=== PATIENT | female | born 1980 | race Caucasian/White ===

== ENCOUNTER 2024-02-26 13:39 | Inpatient (IN) ==
--- OUTSIDE RECORDS SUMMARY | 2024-02-26 13:45 | External Medical Summary | Summary of Care ---
Author Name Unknown Organization [facility] Address [address] [facility] [place] [address] Phone [phone] Care Team Providers Care Measurement Specialist Name Role Phone Angelo Bunch PA-C Primary Care Provide r Reason for Visit * Reason Onset Date Comments Medication Refill 01/20/2024 Encounter Details Date Type Department Care Team (Late st Contact Info) Description 01/20/2024 Refill [facility] [address] [place] [phone] Vik Wesley DO [address] [place] [address] Narcolepsy without cataplexy Allergies Active Allergy Reactions Criticality Noted Date Comments Adhesive Tape 08/28/2009 Hydrocodone-Acetaminoph en Nausea/vomiting 03/23/2016 Nausea Meloxicam Nausea/vomiting Medium 12/08/2018 Fluoxetine Hcl Other (Please comment) 10/21/2009 Crying, anxious documented as of this encounter (statuses as of 01/25/2024) Medications Medication Sig Dispensed Refills Start Date End Date Status Vitron-C 65-125 MG Oral Tablet (Iron-Vitamin C 65-125 mg per tab) Take 1 Tablet by mouth in the morning and 1 Tablet before bedtime. 60 Tablet 11 07/26/2023 Active Additional Information Patient not taking.Reported on 11/29/2023 B-12 1000 MCG Oral Tablet Take 1,000 mcg by mouth in the morning. 30 Tablet 11 07/26/2023 Active Additional Information Patient not taking.Reported on 11/29/2023 Omeprazole 40 MG Oral Capsule Delayed Release (PriLOSEC) Take 1 Capsule by mouth in the morning. 09/15/2023 Active predniSONE 10 MG Oral Tablet (Deltasone)Indicati ons:Primary osteoarthritis of left knee,Strain of left hamstring muscle, initial encounter Take 5 tabs for 2 days, 4 tabs for 2 days, 3 tabs for 2 days, 2 tabs for 2 days 1 tab for 2 days 30 Tablet 11/29/2023 Active Amphetamine-Dextroa mphetamine 10 MG Oral Tablet (Adderall)Indicatio ns:Narcolepsy without cataplexy Take 1 Tablet by mouth 2 times a day in the morning and at noon. 60 Tablet 01/25/2024 Active Amphetamine-Dextroa mphet ER 20 MG Oral Capsule Extended Release 24 Hour (Adderall XR)Indications:Narc olepsy without cataplexy Take 1 Capsule by mouth 2 times a day in the morning and at noon. To be taken along with Adderall IR 10mg twice a day 60 Capsule 01/25/2024 Active Amphetamine-Dextroa mphetamine 10 MG Oral Tablet (Adderall)Indicatio ns:Narcolepsy without cataplexy Take 1 Tablet by mouth 2 times a day in the morning and at noon. 60 Tablet 12/21/2023 4 Discontinu ed(Refill) Amphetamine-Dextroa mphet ER 20 MG Oral Capsule Extended Release 24 Hour (Adderall XR)Indications:Narc olepsy without cataplexy Take 1 Capsule by mouth 2 times a day in the morning and at noon. To be taken along with Adderall IR 10mg twice a day 60 Capsule 12/21/2023 4 Discontinu ed(Refill) documented as of this encounter (statuses as of 01/25/2024) Active Problems Problem Noted Date Diagnosed Date Class 3 severe obesity due t o excess calories with serious comorbidity and body mass index (BMI) of 40.0 to 44.9 in adult 07/05/2023 Bilateral chronic serous otitis media 04/04/2021 History of 2019 novel coronavirus disease (COVID -19) 07/24/2020 Overview: 05/15/2020 History of nasal polyposis 07/12/2019 Deviated nasal septum 07/12/2019 Moderate episode of recurrent major depressive d isorder 06/29/2019 Obsessive-compulsive disorder 05/10/2019 Attention deficit disorder (ADD) without hyperac tivity 05/10/2019 Chronic maxillary sinusitis 05/10/2019 Obesity, Class II, BMI 35-39.9, isolated (see ac tual BMI) 11/11/2018 Narcolepsy without cataplexy 07/08/2018 Fibromyalgia 10/18/2013 Irritable bowel syndrome 01/07/2010 GENERALIZED ANXIETY DISORDER 10/21/2009 Acne vulgaris 10/21/2009 Gastroesophageal reflux disease with esophagitis 10/21/2009 documented as of this encounter (statuses as of 01/25/2024) Resolved Problems Problem Noted Date Diagnosed Date Resolved Date Contusion of occipital region of scalp 12/08/2018 12/28/2018 Whiplash injury to neck 12/08/201812/19 Body mass index 40.0-44.9, adult 09/26/2018 08/05/2023 Overview: Per Obesity protocol #1 Gynecomastia, female 12/08/2017 019 Biliary dyskinesia 04/20/2017 7 Obesity, Class I, BMI 30.0-3 4.9 (see actual BMI) 03/05/2017 09/28/2018 Overview: Per Obesity protocol #1 Biliary dyskinesia 11/11/2015 7 Perilunar dislocation, closed 07/12/2015 09/17/2017 Fibromyalgia 10/18/2013 04/05/2015 Patient is a currently breast-feeding mother 3 11/17/2013 Depression 03/29/2013 05/10/2015 GERD (gastroesophageal reflux disease) 12/30/2011 01/18/2012 Hemorrhage in early , antepartum 12/16/2011 01/18/2012 Other abnormal clinical finding 12/16/2011 01/18/2012 Overview: Possible vanishing twin and sub- chorion bleed on OB USG with other poor ob stetric history(V23.49) 12/14/2011 01/18/2012 Overview: One miscarriage at 8 wks Left ankle sprain 10/28/2011 01/18/2012 Left ankle sprain 10/19/2011 10/19/2011 Other specified forms of hearing loss 05/19/2011 10/19/2011 Dyspnea and respiratory abnormality 05/19/2011 10/19/2011 Overview: ICD-10 update of inactive term Other chronic sinusitis 05/19/201109/21 Tobacco use disorder 05/19/2011 012 Rh negative, antepartum 03/25/201109/21 Overview: Rhogam candidate Given 04/08/2011 Jason GARCIA ICD-10 update of inactive term Encounter for supervision of other normal 03/24/2011 10/19/2011 Overview: H/o PP depression-monitor for S&S ICD-10 update of inactive term Sprain, lumbosacral 01/20/2010 10/28/19 12 Abdominal pain, generalized 01/07/2010 10/19/2011 Irritable bowel syndrome 01/07/2010 PELVIC PAIN 01/07/2010 10/19/2011 Candidal vulvovaginitis 01/07/201009/21 NASAL / SINUS POLYPS 01/03/2010 012 SMOKER 10/21/2009 05/10/2015 Overview: Pt reports not smoking at NOB visit 03/24 Other allergic rhinitis 10/21/200903/21 Overview: ICD-10 update of inactive term Idiopathic scoliosis 10/21/2009 019 Gastritis and gastroduodenitis 08/22/2009 10/19/2011 documented as of this encounter (statuses as of 01/25/2024) Immunizations Name Administration Dates Next Due COVID-19 mRNA, LNP-s, No Pre serve, 2-Dose Series ([employer]) 07/08/2021,08/17/2020 PPD 09/04/2013,08/25/2013,08/14/2013 08/16/2013 Seasonal Influenza Virus Vac cine, Unspecified Formulation 03/26/2021,04/24/2020,05/10/2019,04/18,04/26/2017,04/25/2016,05/14/2015 ,06/29/2012,04/30/2003 Seasonal Influenza, PF, 6 M & above, IM , (FluLaval or Fluzone) 07/05/2023,03/26/2021,04/24/2020,05/10,04/18/2018,04/26/2017 Seasonal Influenza, Quadriva lent, No Preserve, IM 03/21/2022 Seasonal Influenza, Split, I IV3, With Preserve, Inj 04/25/2016,05/14/2015,03/13/2013 TDAP (age 10 and older)(Boostrix) 10/17/2020 TDAP, Age 7 and older, IM (Adacel) 08/13/2010 documented as of this encounter Social History Tobacco Use Types Packs/Day Years Used Date Smoking Tobacco: Former Cigarettes Smokeless Tobacco: Never Comments:quit 2013 - smoked on and off x 10 years/ no passive smoke Alcohol Use Standard Drinks/Week Comments No 0 (1 standard drink = 0.6 oz pur e alcohol) PHQ-2 Answer Date Recorded PHQ Adult Total Score 15 07/05/2023 Hunger Vital Sign Answer Date Recorded Within the past 12 months, y ou worried that your food would run out before you got the money to buy more. Never true 07/05/19 Within the past 12 months, t he food you bought just didn't last and you didn't have money to get more. Never true 07/05/2023 Childcare Answer Date Recorded Do you feel overwhelmed with taking care of a child, family member or friend? No 07/05/2023 Does your family need help f inding childcare? (Household - for ages 0-17 years) Not on file 07/05/2023 Clothing Answer Date Recorded Have you been unable to get clothing when it was really needed? No 07/05/2023 Is your family able to get c lothes or diapers when needed? (Household - for ages 0-17 years) Not on file 07/05/2023 Personal Safety Answer Date Recorded Do you feel unsafe or have concerns for your saf ety? No 07/05/2023 Do you have concerns for you r family's safety? (Household - for ages 0-17 years) Not on file 07/05/2023 Utilities Answer Date Recorded Do you have trouble paying y our heating, water, or electric bill? No 07/05/2023 Is your family able to pay t he heat, water, or electric bill? (Household - for ages 0-17 years) Not on file 07/05/2023 Does your family have access to good internet? (Household - for ages 0-17 years) Not on file 07/05/2023 Employment Status Answer Date Recorded Are you unemployed or without regular income? No 07/05/2023 Does the household have a re gular source of income? (Household - for ages 0-17 years) Not on file 07/05/2023 Social Connections Answer Date Recorded How often do you feel lonely or isolated from those around you? Sometimes 07/05/2023 Financial Resource Strain Answer Date R ecorded Do you have any trouble payi ng for your medications, or do you think you might in the future? Yes 07/05/2023 Does your family have troubl e paying for medicine? (Household - for ages 0-17 years) Not on file 07/05/2023 Transportation Needs Answer Date Record ed READ ONLY Do you have troubl e getting a ride to medical visits or work? Never True 07/05/2023 Does your family have a hard time getting a ride to doctors visits? (Household - for ages 0-17 years) Not on file 07/05/2023 Has lack of transportation k ept you from medical appointments, meetings, work, or from getting things needed for daily living? Check all that apply. (Adult - for ages 18 years and over) Not on file 07/05/2023 Do you (or your family) have trouble finding or paying for a ride (transportation)? (Household - for ages 0-17 years) Not on file 07/05/2023 Housing Stability Answer Date Recorded Do you currently live in a s helter or have no steady place to sleep at night? No 07/05/2023 READ ONLY Do you think you a re at risk of becoming homeless? No 07/05/2023 Does your family worry about paying for your home or becoming homeless? (Household - for ages 0-17 years) Not on file 0 07/05/2023 Are you homeless or worried that you might be in the future? (Adult - for ages 18 years and over) Not on file Are you (or your family) zeynep eless or worried that you might be in the future? (Household - for ages 0-17 years) Not on file Food Insecurity Answer Date Recorded Do you need food for this week? No 07/05/2023 Are you able to get enough f ood for your family? (Household - for ages 0-17 years) Not on file 07/05/2023 Does your family need food t his week? (Household - for ages 0-17 years) Not on file 07/05/2023 Do you always have enough fo od for your family? (Household - for ages 0-17 years) Not on file 07/05/2023 Sex and Gender Information Value Date Recorded Sex Assigned at Female 10/10/2021 6:45 PM EDT Gender Identity Female 10/10/2021 6:45 PM EDT Sexual Orientation Straight 10/10/2021 6: 45 PM EDT Job Start Date Occupation Industry Not on file Not on file Not on file documented as of this encounter Miscellaneous Notes * Telephone Encounter - Vik Wesley DO - 01/25/2024 9:16 AM EDTSigned Prescriptions: Disp Refills Amphetamine-Dextroamphetamine 10 MG Oral T*60 Tab*0 Sig: Take 1 Tablet by mouth 2 times a day in the morning and at noon. Authorizing Provider: VIK WESLEY Amphetamine-Dextroamphet ER 20 MG Oral Cap*60 Cap*0 Sig: Take 1 Capsule by mouth 2 times a day in the morning and at noon. To be taken along with Adderall IR 10mg twice a day Authorizing Provider: VIK WESLEY * Telephone Encounter - Fior Jackman LPN - 01/20/2024 9:25 AM EDTPending Prescriptions: Disp Refills Amphetamine-Dextroamphetamine 10 MG Oral T*60 Tab*0 Sig: Take 1Tablet by mouth 2 times a day in the morning and at noon. Amphetamine-Dextroamphet ER 20 MG Oral Cap*60 Cap*0 Sig: Take 1 Capsule by mouth 2 times a day in the morning and at noon. To be taken along with Adderall IR 10mg twice a day documented in this encounter Plan of Treatment Upcoming Encounters Date Type Department Care Team (Late st Contact Info) Description 03/10/2024 2:20 PM EDT Telemedicine Nutrition & Weight Management, [place] [address] [place] [address] Maile Aragon CRNP [address] [place] [address] 04/17/2024 1:40 PM EDT Office Visit Family [facility] [place] [facility] [address] [place] [address] Angelo Bunch PA-C [address] [place] [address] 05/30/2024 2:00 PM EST Office Visit Gynecology/Obstetrics [facility] [address] [place] [address] Linnette Ovalle CRNP [address] [place] [address] Health Maintenance Due Date Last Done Comments Pneumococcal Vaccine: Pediatrics (0 to 5 Years) and At-Risk Patients (6 to 64 Years) (1 of 2 - PCV) 09/22/1985 Hepatitis B Vaccine (1 of 3 - 19+ 3-dose series) 09/22/1998 HPV/Co-Test 09/22/2009 Mammogram 06/11/2022 06/11/2021, 05/21, 10/31/2019, Additional history exists COVID-19 Vaccine (3 - season) 2023 07/08/2021, 08/17/2020 Influenza Vaccine (FLU shot) (#1) 2024 07/05/2023, 03/21/2022, 03/26/2021, Additional history exists Depression Monitoring 07/05/2024 07/05/2023 Cervical Cancer Screening 02/05/2025 Pap Smear 02/05/2025 02/05/2022, 08/19, 05/04/2017, Additional history exists Diabetes Screening 07/14/2026 07/14/2023, 0 07/14/2023, 03/31/2021, Additional history exists Lipid Panel 07/14/2028 07/14/2023, 03/21, 06/08/2020, Additional history exists DTaP,Tdap,and Td Vaccines (3 - Td or Tdap) 10/17/2030 10/17/2020, 08/13/2010 HPV (Gardasil) Vaccine Aged Out No lo nger eligible based on patient's age to complete this topic MENINGOCOCCAL (MENACTRA/MENVEO) Aged Out No longer eligible based on patient's age to complete this topic documented as of this encounter Medical Devices Not on filedocumented as of this encounter Visit Diagnoses Diagnosis Narcolepsy without cataplexy documented in this encounter Care Teams Measurement Specialist Relationship Specialty Start Date End Date Angelo Bunch PA-C [address] [facility] [place] [address] PCP - General Physician [employer] Lifeguard Specialist 11/29/23 documented as of this encounter
--- OUTSIDE RECORDS SUMMARY | 2024-02-26 13:46 | External Medical Summary | Summary of Care ---
Author Name Unknown Organization [facility] Address [address] [place] [address] Phone [phone] Care Team Providers Care Quality Control Projectionist Name Role Phone Unavailable Primary Care Provider Unavailabl e Reason for Visit * Reason Onset Date Comments Medication Refill 10/11/2023 Encounter Details Date Type Department Care Team (Late st Contact Info) Description 10/11/2023 Refill [facility] [address] [place] [phone] Vik Wesley DO [address] [place] [address] Narcolepsy without cataplexy Allergies Active Allergy Reactions Criticality Noted Date Comments Adhesive Tape 08/28/2009 Hydrocodone-Acetaminoph en Nausea/vomiting 03/23/2016 Nausea Meloxicam Nausea/vomiting Medium 12/08/2018 Fluoxetine Hcl Other (Please comment) 10/21/2009 Crying, anxious documented as of this encounter (statuses as of 10/12/2023) Medications Medication Sig Dispensed Refills Start Date End Date Status Vitron-C 65-125 MG Oral Tablet (Iron-Vitamin C 65-125 mg per tab) Take 1 Tablet by mouth in the morning and 1 Tablet before bedtime. 60 Tablet 11 07/26/2023 Active Additional Information Patient taking differently:1 Tablet OralHS, Reported on 08/20/2023 B-12 1000 MCG Oral Tablet Take 1,000 mcg by mouth in the morning. 30 Tablet 11 07/26/2023 Active Wakix 17.8 MG Oral Tablet (Pitolisant HCl) TAKE 2 TABLETS BY MOUTH 1 TIME A DAY UPON AWAKENING. 60 Tablet 5 08/18/2023 Active Additional Information Patient not taking.Reported on 08/20/2023 Wegovy 0.25 MG/0.5ML Subcutaneous Solution Auto-injector (Semaglutide-Weigh t Management)Indicat ions:Morbid obesity due to excess calories (HCC) Inject 0.25 mg (1 pen) under the skin once a week for 12 doses. 2 mL 2 10/05/2023 4 Active Amphetamine-Dextro amphetamine 10 MG Oral Tablet (Adderall)Indicati ons:Narcolepsy without cataplexy Take 1 Tablet by mouth 2 times a day in the morning and at noon. 60 Tablet 0 10/12/2023 Active Amphetamine-Dextro amphet ER 20 MG Oral Capsule Extended Release 24 Hour (Adderall XR)Indications:Mal colepsy without cataplexy Take 1 Capsule by mouth 2 times a day in the morning and at noon. To be taken along with Adderall IR 10mg twice a day 60 Capsule 0 10/12/2023 Active Amphetamine-Dextro amphetamine 10 MG Oral Tablet (Adderall)Indicati ons:Narcolepsy without cataplexy Take 1 Tablet by mouth 2 times a day in the morning and at noon. 60 Tablet 0 08/31/2023 4 Discontinue d(Refill) Amphetamine-Dextro amphet ER 20 MG Oral Capsule Extended Release 24 Hour (Adderall XR)Indications:Mal colepsy without cataplexy Take 1 Capsule by mouth 2 times a day in the morning and at noon. To be taken along with Adderall IR 10mg twice a day 60 Capsule 0 08/31/2023 4 Discontinue d(Refill) documented as of this encounter (statuses as of 10/12/2023) Active Problems Problem Noted Date Diagnosed Date [...] as of this encounter (statuses as of 10/12/2023) Resolved Problems Problem Noted Date Diagnosed Date [...] as of this encounter (statuses as of 10/12/2023) Immunizations Name Administration Dates Next Due COVID-19 mRNA, LNP-s, No Pre serve, 2-Dose Series ([employer]) 07/08/2021,08/17/2020 PPD 09/04/2013,08/25/2013,08/14/2013 08/16/2013 Seasonal Influenza Virus Vac cine, Unspecified Formulation 03/26/2021,04/24/2020,05/10/2019,04/18,04/26/2017,04/25/2016,05/14/2015 ,06/29/2012,04/30/2003 Seasonal Influenza, PF, 6 M & above, IM , (FluLaval or Fluzone) 07/05/2023,03/26/2021,04/24/2020,05/10,04/18/2018,04/26/2017 Seasonal Influenza, Quadriva lent, No Preserve, IM 03/21/2022 Seasonal Influenza, Split, I IV3, With Preserve, Inj 04/25/2016,05/14/2015,03/13/2013 TDAP (age 10 and older)(Boostrix) 10/17/2020 TDAP (age 11 and older)(Adacel) 08/13/2010 documented as of this encounter Social [...] money to buy more. Never true 07/05/19 24 Within the past 12 months, t he food you bought just didn't last and you didn't have money to get more. Never true 07/05/2023 Sex and Gender Information Value Date Recorded Sex Assigned at Female 10/10/2021 6:45 PM EDT Gender Identity Female 10/10/2021 6:45 PM EDT Sexual Orientation Straight 10/10/2021 6: 45 PM EDT Job Start Date Occupation Industry Not on file Not on file Not on file documented as of this encounter Miscellaneous Notes * Telephone Encounter - Vik Wesley DO - 10/12/2023 10:53 AM EDTSigned Prescriptions: Disp Refills Amphetamine-Dextroamphetamine 10 [...] Telephone Encounter - Fior Jackman LPN - 10/12/2023 8:26 AM EDTPending Prescriptions: Disp Refills Amphetamine-Dextroamphetamine 10 [...] Care Team (Late st Contact Info) Description 10/22/2023 12:20 PM EDT Office Visit Family Practice [facility] [place] [address] [place] [address] Annette Bunch PA-C [address] [place] [address] 01/06/2024 3:00 PM EDT Office Visit [facility] [place] [address] [phone] Aida Marie DO [address] [place] [phone] 03/10/2024 2:20 PM EDT Telemedicine Nutrition & Weight Management, [place] [address] [place] [address] Maile Aragon CRNP [address], [place] [id number] 05/30/2024 2:00 PM EST Office Visit Gynecology/Obstetrics [facility] [address] [place] [address] Linnette Ovalle CRNP [address] [place] [address] Health Maintenance Due Date Last Done Comments Pneumococcal Vaccine: Pediatrics (0 to 5 Years) and At-Risk Patients (6 to 64 Years) (1 of 2 - PCV) 09/22/1985 Hepatitis B (1 of 3 - 19+ 3-dose series) 09/22/1998 HPV/Co-Test 09/22/2009 Mammogram 06/11/2022 06/11/2021, 05/21, 10/31/2019, Additional history exists COVID-19 Vaccine ( - 2022- season) 2023 07/08/2021, 08/17/2020 Depression, Most Recent Score >= 10 (will fire each visit until score < 10) 07/06/2023 07/05/2023 Cervical Cancer Screening 02/05/2025 Pap Smear 02/05/2025 02/05/2022, 08/19, 05/04/2017, Additional history exists Diabetes Screening 07/14/2026 07/14/2023, 0 07/14/2023, 03/31/2021, Additional history exists Lipid Panel 07/14/2028 07/14/2023, 03/21, 06/08/2020, Additional history exists DTaP,Tdap,and Td Vaccines (3 - Td or Tdap) 10/17/2030 10/17/2020, 08/13/2010 Influenza Vaccine (FLU shot) Completed , 03/21/2022, 03/26/2021, Additional history exists GARDASIL-HPV IMMUNIZATION SERIES Aged Out No longer eligible based on patient's age to complete this topic MENINGOCOCCAL (MENACTRA/MENVEO) Aged Out No longer eligible based on patient's age to complete this topic documented as of this encounter Medical Devices Not on filedocumented as of this encounter Visit Diagnoses Diagnosis Narcolepsy without cataplexy documented in this encounter
--- OUTSIDE RECORDS SUMMARY | 2024-02-26 13:46 | External Medical Summary | Summary of Care ---
Author Name Unknown Organization [facility] Address [address] [place] [address] Phone [phone] Care Team Providers Care Receiving Dock Checker Name Role Phone Unavailable Primary Care Provider Unavailabl e Reason for Visit * Reason Comments Weight Management * Evaluate & Treat - Unlimited Visits (Within 30 days (routine)) - Authorized Specialty Diagnoses / Procedures Referred By Contact Referred To Contact GI NUTRITION/IM / Gastroenterology Diagnoses Weight gain Annette Bunch PA-C [address] [place] [address] Referral ID Status Reason Start Date Expiration Date Visits Requested Visits Authorized [id number] Authorized Specialty Services Required 07/05/2023 07/05/[phone] Encounter Details Date Type Department Care Team (Late st Contact Info) Description 10/05/2023 3:40 PM EDT [facility] [address] [place] [address] Johnny Shaw MD [address] [place] [address] Abnormal weight gain*; Morbid obesity due to excess calories (HCC); Dyslipidemia, goal LDL below 100; Narcolepsy without cataplexy Allergies Active Allergy Reactions Criticality Noted Date Comments Adhesive Tape 08/28/2009 Hydrocodone-Acetaminoph en Nausea/vomiting 03/23/2016 Nausea Meloxicam Nausea/vomiting Medium 12/08/2018 Fluoxetine Hcl Other (Please comment) 10/21/2009 Crying, anxious documented as of this encounter (statuses as of 10/05/2023) Medications Medication Sig Dispensed Refills Start Date [...] Additional Information Patient not taking.Reported on 08/20/2023 Amphetamine-Dextroa mphetamine 10 MG Oral Tablet (Adderall)Indicatio ns:Narcolepsy without cataplexy Take 1 Tablet by mouth 2 times a day in the morning and at noon. 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 To be taken along with Adderall IR 10mg twice a day 60 Capsule 0 08/31/2023 Active Wegovy 0.25 MG/0.5ML Subcutaneous Solution Auto-injector (Semaglutide-Weight Management)Indicati ons:Morbid obesity due to excess calories (HCC) Inject 0.25 mg under the skin once a week for 12 doses. 2 mL 2 10/05/2023 12/22/2023 Active documented as of this encounter (statuses as of 10/05/2023) Active Problems Problem Noted Date Diagnosed Date [...] as of this encounter (statuses as of 10/05/2023) Resolved Problems Problem Noted Date Diagnosed Date [...] as of this encounter (statuses as of 10/05/2023) Immunizations Name Administration Dates Next Due COVID-19 mRNA, LNP-s, No Pre serve, 2-Dose Series ([email or web address]) 07/08/2021,08/17/2020 PPD 09/04/2013,08/25/2013,08/14/2013 08/16/2013 Seasonal Influenza Virus [...] Smoking Tobacco: Former Cigarettes Smokeless Tobacco: Never Tobacco Cessation:Counseling Given: Not Answered Comments:quit 2013 - smoked on and off [...] on file documented as of this encounter Last Filed Vital Signs Vital Sign Reading Time Taken Comments Blood Pressure - - Pulse - - Temperature - - Respiratory Rate - - Oxygen Saturation - - Inhaled Oxygen Concentration - - Weight 104.3 kg (230 lb) 10/05/2023 3:40 PM EDT Height - - Body Mass Index 40.74 08/18/2023 10:30 AM EST documented in this encounter Progress Notes * Johnny Shaw MD - 10/05/2023 3:36 PM EDT [facility] WE[facility] MANAGEMENT CLIN[facility] CONSULTATION Referring Physician: Annette Bunch PA-C Patient location: HOME. I was in a hospital or clinic location. After connecting through [employer],patient was verified with two unique identifiers. Patient (or authorized legal underwriting sales representative) was then informed that this was a Telemedicine visit and being conducted confidentially over secure lines. Methods to assure confidentiality were taken. Patient acknowledged consent and understanding of pr ivacy and security of the Telemedicine visit. The patient agreed to participate. Source of information: Patient Available records reviewed: Recent provider visits, Imaging, and Labs Reason for Referral: Weight Management. 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 Obesity, Class II, BMI 35-39.9, isolated (see actual BMI) E66.9 Irritable bowel syndrome K58.9 Fibromyalgia M79.7 Obsessive-compulsive disorder F42.9 Attention deficit disorder (ADD) without hyperactivity F98.8 Chronic maxillary sinusitis J32.0 Moderate episode of recurrent major depressive disorder (HCC) F33.1 History of nasal polyposis Z87.09 Deviated nasal septum J34.2 History of 2019 novel coronavirus disease (COVID-19) Z86.16 Bilateral chronic serous otitis media H65.23 Class 3 severe obesity due to excess calories with serious comorbidity and body mass index (BMI) of40.0 to 44.9 in adult (HCC) E66.01, Z68.41 who presents to the [facility] for further recommendations. HPI: Ms. Orellana has a BMI of 40 and suffers from Morbid obesity. At today's initial consultation, the patient would like to receive counseling regarding healthy diet and lifestyle changes she can make to help with abnormal weight gain. She would also like to discuss medical management for the treatment of obesity. Abnormal weight gain started a few years prior. Patient attributes her weight gain to a recent diagnosis of narcolepsy. She was sleeping quite often over the last few months due to not taking her medication and that resulted in gaining weight. In the past, the patient has tried only a few methods to help lose weight. She tried portion control and increasing her exercise. None of these methods caused any significant weight loss. She has never tried commercial programs or medications for weight loss. Previous Weight Management Interventions: The patient has tried weight loss in the past without significant skilled nursing success. Previous interventions: Self-directed. She denies any past pharmacotherapy for weight loss. Weight history: Highest Body Weight: 230 pounds in 2023. Wt Readings from Last 8 Encounters: 10/05/23 104.3 kg (230 lb) 08/20/23 102.4 kg (225 lb 11.2 oz) 08/18/23 102.5 kg (226 lb) 07/05/23 104.3 kg (230 lb) 07/02/23 104.3 kg (230 lb) 05/13/22 92.4 kg (203 lb 12.8 oz) 02/05/22 89.8 kg (198 lb) 09/16/21 93.1 kg (205 lb 3.2 oz) Current Diet: Describes typical diet history/24 hr recall Breakfast: Skips Lunch: 2 eggs, piece of toast Dinner: Vegetable shrimp stir harris Snacks: Skips Drinks: Decaf tea Restaurant meals: once a week, twice a week Activity: Does not exercise Past Medical History: Diagnosis Date ACNE 10/21/2009 ALLERGIC RHINITIS 10/21/2009 Attention deficit disorder (ADD) without hyperactivity 05/10/2019 Chronic maxillary sinusitis 05/10/2019 Esophageal reflux 10/21/2009 Fibromyalgia 10/18/2013 Generalized anxiety disorder 10/21/2009 GERD (gastroesophageal reflux disease) Gynecomastia, female 12/08/2017 Idiopathic scoliosis 10/21/2009 Irritable bowel syndrome 01/07/2010 Left ankle sprain 10/28/2011 Moderate episode of recurrent major depressive disorder (HCC) 06/29/2019 Obesity, Class I, BMI 30.0-34.9 (see actual BMI) 03/05/2017 Obsessive-compulsive disorder 05/10/2019 Primary narcolepsy without cataplexy 07/08/2018 SMOKER 10/21/2009 Pt reports not smoking at NOB visit 10/4 SPRAIN LUMBOSACRAL 01/20/2010 Past Surgical History: Procedure Laterality Date CRANIOFACIAL APPROACH, EXTRADURAL 09/20/95 INFORMATION Bilateral 2013 essure coils placed LAPAROSCOPY; CHOLECYSTECTOMY N/A 04/20/2017 LAPAROSCOPIC CHOLECYSTECTOMY performed by Vladimir Chisholm MD at [facility] REMOVAL OF ETHMOID SINUS,EXTRANASAL 09/20/95 Review of patient's allergies indicates: Allergen Reactions Meloxicam Nausea/vomiting Adhesive Tape Hydrocodone-Acetaminophen Nausea/vomiting Nausea Prozac [Fluoxetine Hcl] Other (Please comment) Crying, anxious Current Outpatient Medications Medication Sig Dispense Refill Vitron-C 65-125 MG Oral Tablet (Iron-Vitamin C 65-125 mg per tab) Take 1 Tablet by mouth in the morning and 1 Tablet before bedtime. (Patient taking differently: Take 1 Tablet by mouth at bedtime.) 60 Tablet 11 B-12 1000 MCG Oral Tablet Take 1,000 mcg by mouth in the morning. 30 Tablet 11 Wakix 17.8 MG Oral Tablet (Pitolisant HCl) TAKE 2 TABLETS BY MOUTH 1 TIME A DAY UPON AWAKENING. (Patient not taking: Reported on 08/20/2023) 60 Tablet 5 Amphetamine-Dextroamphetamine 10 MG Oral Tablet (Adderall) Take 1 Tablet by mouth 2 times a day in the morning and at noon. 60 Tablet 0 Amphetamine-Dextroamphet ER 20 MG Oral Capsule Extended Release 24 Hour (Adderall XR) Take 1 Capsule by mouth 2 times a day in the morning and at noon. To be taken along with Adderall IR 10mg twice aday 60 Capsule 0 No current facility-administered medications for this visit. Family History: Family History Problem Relation Age of Onset Depression Mother Benign Breast Condition Mother Hypertension Father Other (non hodgkins lymphoma) Father Hyperlipidemia Father Thyroid Disorder Father No Past Hx Brother COPD Grandmother (Maternal) COPD Grandmother (Paternal) Heart failure Grandmother (Paternal) Social History: Alcohol: Infrequent Tobacco Use: No Drug Use: No Review of Systems: Constitutional: (+) weight change Cardiovascular: (-) negative: no chest pain, dyspnea, syncope, or palpitations Pulmonary: (-) negative: no cough, wheezing, or shortness of breath Abdominal/GI: (-) negative: no pain, heartburn, dysphagia, bleeding, change in bowel habits, nauseaor vomiting Eyes: Glaucoma No Cardiovascular: No chest pain, No shortness of breath, No dyspnea on exertion, No orthopnea, No edema, No palpitations, and No syncope Hypertension: No BP Readings from Last 3 Encounters: 08/20/23 134/88 08/18/23 122/68 07/05/23 134/84 CAD: No Pulmonary Asthma: No COPD: No There are no exam notes on file for this visit. Sleep Apnea: No Endocrine: No Patient denies personal or family history of medullary thyroid carcinoma. Patient denies personal or family history of multiple endocrine neoplasia syndrome. Insulin Resistance: No Diabetes: No Hemoglobin AIC Results: No components found for: "[id number]" Dyslipidemia: Yes, not on treatment Lipid Panel Results: Results for orders placed or performed in visit on 07/14/23 LIPID PANEL WITH DIRECT LDL IF TG IS HIGH Result Value Ref Range Triglycerides 247 (H) <=174 mg/dL Cholesterol 232 (H) <200 mg/dL HDL Cholesterol 50 >49 mg/dL Non-HDL Cholesterol 182 (H) <=159 mg/dL LDL Cholesterol 133 (H) <=129 mg/dL GI: No abdominal pain, No change in bowel habits, No significant heartburn, No significant change in appetite, No nausea, vomiting, diarrhea, or constipation, No hematemesis, No blood in stools or black tarry stools, No abdominal bloating or early satiety, and No dysphagia GERD: No Fatty Liver: No Renal History of nephrolithiasis: No. Musculoskeletal Osteoarthritis: No Functional Status: NO Impairment Reproductive Polycystic ovarian syndrome: No Menstrual Cycle: Yes Control: No Neuro Stroke: No Seizures: No Pseudotumor: No Headache: Yes PSYCHOSOCIAL: No Physical Examination: TeleMed visit Wt 104.3 kg (230 lb) | BMI 40.74 kg/m | BSA 2.15 m Constitutional: no acute distress, +overweight Assessment and Recommendation: Ms. Orellana is a 43 year old patient with a past medical history listed above, who [facility]sto the [facility] for further recommendations regarding abnormal weightgain, her Body mass index is 40.74 kg/m. classifying her as having Morbid obesity . #Abnormal Weight Gain #Morbid Obesity BMI 41, not on any weight loss medications currently. - Start wegovy .25mg weekly with plans to increase dose monthly as tolerated - Counseled extensively on healthy diet and lifestyle interventions - Patient encouraged to track daily caloric intake using apps such as [employer] (TEN), or LOSE IT! - Increase protein intake to 1 gram/kg for a minimum of 100g daily - Decrease carbohydrate intake and increase proportions of protein:carbs in every meal - Increase fluid intake to 64 fluid oz daily, minimum - Handouts regarding nutrition and physical activity were provided, as appropriate. - Encouraged daily exercise including a minimum of 30 mins/ 3 days a week - RTC in 3 months in person or via telehealth #Dyslipidemia Lipid panel was checked 06/2023 and showed elevated triglycerides (247), elevated total cholesterol(232), elevated LDL (133) - Counseled extensively on healthy diet and lifestyle interventions - Expect improvement with weight loss #Narcolepsy without cataplexy - Adderall #Iron deficiency Anemia Ferritin level of 15 - Vitron C Time spent with patient 60 minutes. More than 50% of my time spent with patient providing counseling about the benefits of weight loss, about the patient's nutritional status, detailed explanations about calorie count, types of nutrients to choose, and composition of the meals. Reviewed and discussed weight, weight trends and pertinent labs and test results. Motivational interview provided in order to prepare the patient to achieve future goals. The patient agreed to try all the plan discussed and return in three months. Patient was instructed to message or call in the meantime with any further concerns or questions. Johnny Shaw MD documented in this encounter Plan of Treatment Upcoming Encounters Date Type Department Care Team (Late st Contact Info) Description 10/22/2023 12:20 PM EDT Office Visit [facility] [address] [facility] [address] Annette Bunch PA-C [address] [facility] [place] [address] 01/06/2024 3:00 PM EDT Office Visit Sleep Disorders Ctr [facility] [address] [phone] Aida Marie DO [address] [address] 05/30/2024 2:00 PM EST Office Visit Gynecology/Obstetrics [facility] [address] [place] [address] [place], OSIEL Goff [address] [place] [address] Health Maintenance Due Date Last Done Comments Pneumococcal Vaccine: Pediatrics (0 to 5 Years) and At-Risk Patients (6 to 64 Years) (1 of 2 - PCV) 09/22/1985 Hepatitis B (1 of 3 - 19+ 3-dose series) 09/22/1998 HPV/Co-Test 09/22/2009 Mammogram 06/11/2022 06/11/2021, 05/21, 10/31/2019, Additional history exists COVID-19 Vaccine ( - season) 2023 07/08/2021, 08/17/2020 Depression, Most Recent [...] as of this encounter Visit Diagnoses Diagnosis Abnormal weight gain- Primary Morbid obesity due to excess calories (HCC) Dyslipidemia, goal LDL below 100 Other and unspecified hyperlipidemia Narcolepsy without cataplexy documented in this encounter
--- OUTSIDE RECORDS SUMMARY | 2024-02-26 13:46 | External Medical Summary | Summary of Care ---
Author Name Unknown Organization [facility] Address [address] [facility] [address] Phone [phone] Care Team Providers Care Boilermaker'S Assistant Name Role Phone Unavailable Primary Care Provider Unavailabl e Reason for Visit * Reason Onset Date Comments Precert Denied 08/27/2023 Wakix 17.8 mg ta blets Encounter Details Date Type Department Care Team (Late st Contact Info) Description 08/27/2023 Telephone Sleep Disorders Ctr [facility] [address] [place] [phone] Aida Marie, [address] [place] [address] Precert Denied ( Wakix 17.8 mg tablets ) Allergies Active Allergy Reactions Criticality Noted Date Comments Adhesive Tape 08/28/2009 Hydrocodone-Acetaminoph en Nausea/vomiting 03/23/2016 Nausea Meloxicam Nausea/vomiting Medium 12/08/2018 Fluoxetine Hcl Other (Please comment) 10/21/2009 Crying, anxious documented as of this encounter (statuses as of 09/01/2023) Medications Medication Sig Dispensed Refills Start Date [...] Additional Information Patient not taking.Reported on 08/20/2023 Amphetamine-Dextr oamphetamine 10 MG Oral Tablet (Adderall)Indicat ions:Narcolepsy without cataplexy Take 1 Tablet by mouth 2 times a day in the morning and at noon. 60 Tablet 0 07/27/2023 4 Discontinued (Refill) Amphetamine-Dextr oamphet ER 20 MG Oral Capsule Extended Release 24 Hour (Adderall XR)Indications:Na rcolepsy without cataplexy Take 1 Capsule by mouth 2 times a day in the morning and at noon. To be taken along with Adderall IR 10mg twice a day 60 Capsule 0 07/30/2023 4 Discontinued (Refill) Amoxicillin 500 MG Oral Capsule (Amoxil)Indicatio ns:Acute non-recurrent frontal sinusitis Take 1 Capsule by mouth in the morning and 1 Capsule at noon and 1 Capsule before bedtime. Do all this for 10 days. 30 Capsule 0 08/20/2023 4 valACYclovir HCl 1 GM Oral Tablet (Valtrex)Indicati ons:Herpes zoster without complication Take 1 Tablet by mouth in the morning and 1 Tablet at noon and 1 Tablet before bedtime. Do all this for 7 days. For 7 days for shingles. 21 Tablet 0 08/20/2023 4 documented as of this encounter (statuses as of 09/01/2023) Active Problems Problem Noted Date Diagnosed Date [...] as of this encounter (statuses as of 09/01/2023) Resolved Problems Problem Noted Date Diagnosed Date [...] as of this encounter (statuses as of 09/01/2023) Immunizations Name Administration Dates Next Due COVID-19 mRNA, LNP-s, No Pre serve, 2-Dose Series ([employer]) 07/08/2021,08/17/2020 PPD 09/04/2013,08/25/2013,08/14/2013 08/16/2013 Seasonal Influenza Virus [...] encounter Miscellaneous Notes * Telephone Encounter - Violetta Quevedo LPN - 08/27/2023 11:43 AM EST Needs prior authorization for Wakix 17.8 mg tablets. Through sleep department. documented in this encounter Plan of Treatment Upcoming Encounters Date Type Department Care Team (Late st Contact Info) Description 09/16/2023 10:00 AM EDT Office Visit Nutrition & Weight Management, [facility] [address] [place] [address] Lizzette Reynolds PA-C [address] [place] [address] 10/22/2023 12:20 PM EDT Office Visit [facility] [address] [facility] [place] [address] Annette Bunch PA-C [address] [facility] [place] [address] 01/06/2024 3:00 PM EDT Office Visit Sleep Disorders Ctr [facility] [address] [place] [phone] Aida Marie DO [address] [place] [address] 05/30/2024 2:00 PM EST Office Visit Gynecology/Obstetrics [facility] [address] [place] [address] Linnette Ovalle CRNP [address] [place] [address] Health Maintenance Due Date Last Done Comments Pneumococcal Vaccine: Pediatrics (0 to 5 Years) and At-Risk Patients (6 to 64 Years) (1 of 2 - PCV) 09/22/1985 Hepatitis B (1 of 3 - 19+ 3-dose series) 09/22/1998 HPV/Co-Test 09/22/2009 Mammogram 06/11/2022 06/11/2021, 05/21, 10/31/2019, Additional history exists COVID-19 Vaccine (3 - 2022-24 season) 2023 07/08/2021, 08/17/2020 Depression, Most Recent [...]
--- OUTSIDE RECORDS SUMMARY | 2024-02-26 13:46 | External Medical Summary | Summary of Care ---
Author Name Unknown Organization [facility] Address [address] [facility] [place] [address] Phone [phone] Care Team Providers Care Solutions Developer Name Role Phone Unavailable Primary Care Provider Unavailabl e Reason for Visit * Reason Onset Date Comments Medication Refill 11/18/2023 Encounter Details Date Type Department Care Team (Late st Contact Info) Description 11/18/2023 Refill [facility] Disorders [facility] [address] [place] [phone] Vik Wesley DO [address] [place] [address] Narcolepsy without cataplexy Allergies Active Allergy Reactions Criticality Noted Date Comments Adhesive Tape 08/28/2009 Hydrocodone-Acetaminoph en Nausea/vomiting 03/23/2016 Nausea Meloxicam Nausea/vomiting Medium 12/08/2018 Fluoxetine Hcl Other (Please comment) 10/21/2009 Crying, anxious documented as of this encounter (statuses as of 11/19/2023) Medications Medication Sig Dispensed Refills Start Date [...] the morning and at noon. 60 Tablet 11/19/2023 Active Amphetamine-Dextro amphet ER 20 MG Oral Capsule Extended Release 24 Hour (Adderall XR)Indications:Mal colepsy without cataplexy Take 1 Capsule by mouth 2 times a day in the morning and at noon. To be taken along with Adderall IR 10mg twice a day 60 Capsule 11/19/2023 Active Amphetamine-Dextro amphetamine 10 MG Oral Tablet (Adderall)Indicati ons:Narcolepsy without cataplexy Take 1 Tablet by mouth 2 times a day in the morning and at noon. 60 Tablet 10/12/2023 4 Discontinue d(Refill) Amphetamine-Dextro amphet ER 20 MG Oral Capsule Extended Release 24 Hour (Adderall XR)Indications:Mal colepsy without cataplexy Take 1 Capsule by mouth 2 times a day in the morning and at noon. To be taken along with Adderall IR 10mg twice a day 60 Capsule 10/12/2023 4 Discontinue d(Refill) documented as of this encounter (statuses as of 11/19/2023) Active Problems Problem Noted Date Diagnosed Date [...] as of this encounter (statuses as of 11/19/2023) Resolved Problems Problem Noted Date Diagnosed Date [...] as of this encounter (statuses as of 11/19/2023) Immunizations Name Administration Dates Next Due COVID-19 mRNA, LNP-s, No Pre serve, 2-Dose Series ([employer]) 07/08/2021,08/17/2020 PPD 09/04/2013,08/25/2013,08/14/2013 08/16/2013 Seasonal Influenza Virus [...] Telephone Encounter - Vik Wesley DO - 11/19/2023 9:47 AM EDTSigned Prescriptions: Disp Refills Amphetamine-Dextroamphetamine 10 [...] Telephone Encounter - Fior Jackman LPN - 11/19/2023 8:28 AM EDTPending Prescriptions: Disp Refills Amphetamine-Dextroamphetamine 10 [...] Care Team (Late st Contact Info) Description 01/06/2024 3:00 PM EDT Office Visit Sleep Disorders Ctr [facility] [address] [phone] Aida Marie DO [address] [address] 03/10/2024 2:20 PM EDT Telemedicine Nutrition & Weight Management[address] [place] [address] Maile Aragon CRNP [address] [place] [address] 05/30/2024 2:00 PM EST Office Visit Gynecology/Obstetrics [facility] [address] [place] [place] [address] Linnette Ovalle CRNP [address] [place] [address] Health Maintenance Due Date Last Done Comments Pneumococcal Vaccine: Pediatrics (0 to 5 Years) and At-Risk Patients (6 to 64 Years) (1 of 2 - PCV) 09/22/1985 Hepatitis B (1 of 3 - 19+ 3-dose series) 09/22/1998 HPV/Co-Test 09/22/2009 Mammogram 06/11/2022 06/11/2021, 05/21, 10/31/2019, Additional history exists COVID-19 Vaccine ( season) 2023 07/08/2021, 08/17/2020 Depression, Most Recent [...]
--- OUTSIDE RECORDS SUMMARY | 2024-02-26 13:46 | External Medical Summary | Summary of Care ---
Author Name Unknown Organization [facility] Address [address] [place] [address] Phone [phone] Care Team Providers Care Management Lecturer Name Role Phone Angelo Bunch PA-C Primary Care Provide r Reason for Visit * Reason Onset Date Comments Precert Denied 10/06/2023 Wegovy Encounter Details Date Type Department Care Team (Late st Contact Info) Description 10/06/2023 Telephone Nutrition & Weight Management, [place] [address] [place], [place] [id number] Johnny Shaw MD [address] [place] [address] [place] [address] Precert Denied (Wegovy) Allergies Active Allergy Reactions Criticality Noted Date Comments Adhesive Tape 08/28/2009 Hydrocodone-Acetaminoph en Nausea/vomiting 03/23/2016 Nausea Meloxicam Nausea/vomiting Medium 12/08/2018 Fluoxetine Hcl Other (Please comment) 10/21/2009 Crying, anxious documented as of this encounter (statuses as of 01/05/2024) Medications Medication Sig Dispensed Refills Start Date [...] Additional Information Patient not taking.Reported on 11/29/2023 Wakix 17.8 MG Oral Tablet (Pitolisant HCl) TAKE 2 TABLETS BY MOUTH 1 TIME A DAY UPON AWAKENING. 60 Tablet 5 08/18/2023 4 Discontinue d(End of Procedure) Amphetamine-Dextro amphetamine 10 MG Oral Tablet (Adderall)Indicati ons:Narcolepsy without cataplexy Take 1 Tablet by mouth 2 times a day in the morning and at noon. 60 Tablet 08/31/2023 4 Discontinue d(Refill) Amphetamine-Dextro amphet ER 20 MG Oral Capsule Extended Release 24 Hour (Adderall XR)Indications:Mal colepsy without cataplexy Take 1 Capsule by mouth 2 times a day in the morning and at noon. To be taken along with Adderall IR 10mg twice a day 60 Capsule 08/31/2023 4 Discontinue d(Refill) Wegovy 0.25 MG/0.5ML Subcutaneous Solution Auto-injector (Semaglutide-Weigh t Management)Indicat ions:Morbid obesity due to excess calories (HCC) Inject 0.25 mg (1 pen) under the skin once a week for 12 doses. 2 mL 2 10/05/2023 4 Discontinue d(End of Procedure) documented as of this encounter (statuses as of 01/05/2024) Active Problems Problem Noted Date Diagnosed Date [...] as of this encounter (statuses as of 01/05/2024) Resolved Problems Problem Noted Date Diagnosed Date [...] as of this encounter (statuses as of 01/05/2024) Immunizations Name Administration Dates Next Due COVID-19 mRNA, LNP-s, No Pre serve, 2-Dose Series ([employer]) 07/08/2021,08/17/2020 PPD 09/04/2013,08/25/2013,08/14/2013 08/16/2013 Seasonal Influenza Virus [...] encounter Miscellaneous Notes * Telephone Encounter - Haylie Basurto CPhT - 10/19/2023 9:52 AM EDT Hello! The prior authorization for kalani has been denied. Does the office plan on appealing this decision or will the provider be seeking alternate therapy for this patient? Please let us know how you plan to proceed so we may follow up appropriately. Thank you, Haylie Basurto CPhT III [facility] * Telephone Encounter - Radha Nam LPN - 10/13/2023 8:32 AM EDT PER [employer]: The requested medication and/or diagnosis are not a covered benefit and are excluded from coverage in accordance with the terms and conditions of your plan benefit. Therefore, this request has been administratively denied. Vanessa Ruff Medication J2Ee Application Developer III P: [phone] F: [phone] 10/08/23,11:33 AM * Telephone Encounter - Haylie Basurto CPhT - 10/12/2023 3:13 PM EDT Hello! The prior authorization for wegovy has been denied. Does the office plan on appealing this decision or will the provider be seeking alternate therapy for this patient? Please let us know how you plan to proceed so we may follow up appropriately. Thank you, Haylie Basurto CPhT III [facility] * Telephone Encounter - Angy Valles CPhT - 10/06/2023 2:23 PM EDT New or re-auth: New Patient Diane Orellana needs a prior authorization for a medication through their [employer] insurance. Medication: Wegovy Formulation: 0.25mg/0.5ml soaj Dosage: Inject 0.25 mg (1 pen) under the skin once a week for 12 doses. ID: [id number] BIN:[id number] PCN:[id number] Phone: Target ship date is new start. Thank you very much, Angy Valles CPhT Hematology Oncology Consultant [facility] 10/06/2023,2:24 PM documented in this encounter Plan of Treatment Upcoming Encounters Date Type Department Care Team (Late st Contact Info) Description 01/11/2024 10:00 AM EDT [facility] [address] [place] [place] [address] Angelo Bunch PA-C [address] [place] [address] 03/10/2024 2:20 PM EDT Telemedicine Nutrition & Weight Management, [place] [address] [place] [address] Maile Aragon CRNP [address] [place] [address] 04/17/2024 1:40 PM EDT [facility] Visit [facility] [address] [place] [address] Angelo Bunch PA-C [address] [facility] [place] [address] 05/30/2024 2:00 PM EST Office Visit Gynecology/Obstetrics [facility]man[facility] [address] [place] [address] Linnette Ovalle CRNP [address] [place] [address] Health Maintenance Due Date Last Done Comments Pneumococcal Vaccine: Pediatrics (0 to 5 Years) and At-Risk Patients (6 to 64 Years) (1 of 2 - PCV) 09/22/1985 Hepatitis B Vaccine (1 of 3 - 19+ 3-dose series) 09/22/1998 HPV/Co-Test 09/22/2009 Mammogram 06/11/2022 06/11/2021, 05/21, 10/31/2019, Additional history exists COVID-19 Vaccine ( season) 2023 07/08/2021, 08/17/2020 Influenza Vaccine (FLU [...] Not on filedocumented as of this encounter Care Teams Management Lecturer Relationship Specialty Start Date End Date Angelo Bunch PA-C [address] [facility] [place] [address] PCP - General Physician Back Strip Machine Operator 11/29/23 documented as of this encounter
--- OUTSIDE RECORDS SUMMARY | 2024-02-26 13:46 | External Medical Summary | Summary of Care ---
Author Name Unknown Organization [facility] [address] [facility] [address] Phone [phone] Care Team Providers Care Pedorthist Name Role Phone Unavailable Primary Care Provider Unavailabl e Reason for Visit * Reason Onset Date Comments Medication Refill 08/30/2023 Encounter Details Date Type Department Care Team (Late st Contact Info) Description 08/30/2023 Refill [facility] [address] [place] [phone] Vik Wesley DO [address] [place] [address] Narcolepsy without cataplexy Allergies Active Allergy Reactions Criticality Noted Date Comments Adhesive Tape 08/28/2009 Hydrocodone-Acetaminoph en Nausea/vomiting 03/23/2016 Nausea Meloxicam Nausea/vomiting Medium 12/08/2018 Fluoxetine Hcl Other (Please comment) 10/21/2009 Crying, anxious documented as of this encounter (statuses as of 08/31/2023) Medications Medication Sig Dispensed Refills Start Date [...] Additional Information Patient not taking.Reported on 08/20/2023 Amphetamine-Dext roamphetamine 10 MG Oral Tablet (Adderall)Indica tions:Narcolepsy without cataplexy Take 1 Tablet by mouth 2 times a day in the morning and at noon. 60 Tablet 0 08/31/2023 Active Amphetamine-Dext roamphet ER 20 MG Oral Capsule Extended Release 24 Hour (Adderall XR)Indications:N arcolepsy without cataplexy Take 1 Capsule by mouth 2 times a day in the morning and at noon. To be taken along with Adderall IR 10mg twice a day 60 Capsule 0 08/31/2023 Active Amphetamine-Dext roamphetamine 10 MG Oral Tablet (Adderall)Indica tions:Narcolepsy without cataplexy Take 1 Tablet by mouth 2 times a day in the morning and at noon. 60 Tablet 0 07/27/2023 4 Discontinue d(Refill) Amphetamine-Dext roamphet ER 20 MG Oral Capsule Extended Release 24 Hour (Adderall XR)Indications:N arcolepsy without cataplexy Take 1 Capsule by mouth 2 times a day in the morning and at noon. To be taken along with Adderall IR 10mg twice a day 60 Capsule 0 07/30/2023 4 Discontinue d(Refill) documented as of this encounter (statuses as of 08/31/2023) Active Problems Problem Noted Date Diagnosed Date [...] as of this encounter (statuses as of 08/31/2023) Resolved Problems Problem Noted Date Diagnosed Date [...] as of this encounter (statuses as of 08/31/2023) Immunizations Name Administration Dates Next Due COVID-19 mRNA, LNP-s, No Pre serve, 2-Dose Series ([employer]) 07/08/2021,08/17/2020 PPD 09/04/2013,08/25/2013,08/14/2013 08/16/2013 Seasonal Influenza Virus [...] Miscellaneous Notes * Telephone Encounter - Vik Wesley, DO - 08/31/2023 7:54 AM EDTSigned Prescriptions: Disp Refills Amphetamine-Dextroamphetamine 10 [...] VIK WESLEY * Telephone Encounter - Fior Harris LPN - 08/30/2023 9:52 AM EDTPending Prescriptions: Disp Refills Amphetamine-Dextroamphetamine 10 [...] EDT Office Visit Nutrition & Weight Management, [facility] [address] [place] [address] Lizzette Reynolds PA-C [address] [place] [address] 10/22/2023 12:20 PM EDT Office Visit Family Practice [facility] [address] [place] [address] Annette Bunch PA-C [address] [place] [address] 01/06/2024 3:00 PM EDT [facility] [address] [place] [phone] Aida Marie DO [address] [place] [address] 05/30/2024 2:00 PM EST Office Visit Gynecology/Obstetrics Oscar Umana [address] [place] [address] Linnette Ovalle CRNP [address] [place] [address] Health Maintenance Due Date Last Done Comments [...]
--- OUTSIDE RECORDS SUMMARY | 2024-02-26 13:46 | External Medical Summary | Summary of Care ---
Author Name Unknown Organization [facility] Address [address] [facility] [address] Phone [phone] Care Team Providers Care Shop Router Name Role Phone Unavailable Primary Care Provider Unavailabl e Reason for Visit * Reason Onset Date Comments Medication Question 07/16/2023 Encounter Details Date Type Department Care Team (Late st Contact Info) Description 07/16/2023 Telephone Pulmonary Medicine, [facility] [address] [place] [address] Mayra Wesley, [address] [place] [address] Medication Question Allergies Active Allergy Reactions Criticality Noted Date Comments Adhesive Tape 08/28/2009 Hydrocodone-Acetaminoph en Nausea/vomiting 03/23/2016 Nausea Meloxicam Nausea/vomiting Medium 12/08/2018 Fluoxetine Hcl Other (Please comment) 10/21/2009 Crying, anxious documented as of this encounter (statuses as of 10/15/2023) Medications No known medicationsdocumented as of this encounter (statuses as of 10/15/2023) Active Problems Problem Noted Date Diagnosed Date [...] as of this encounter (statuses as of 10/15/2023) Resolved Problems Problem Noted Date Diagnosed Date [...] as of this encounter (statuses as of 10/15/2023) Immunizations Name Administration Dates Next Due COVID-19 mRNA, LNP-s, No Pre serve, 2-Dose Series ([employer]) 07/08/2021,08/17/2020 PPD 09/04/2013,08/25/2013,08/14/2013 08/16/2013 Seasonal Influenza Virus [...] encounter Miscellaneous Notes * Telephone Encounter - Annette Pham, community manager - 07/16/2023 9:04 AM EST [facility] to confirm that the patient is supposed to be on both adderall prescriptions. They would also like to know if the directions are correct for the prescriptions. Please advise. Annette Espino Reading Teacher II [facility] [address] [place] [address] 07/16/2023 9:05 AM documented in this encounter Plan of Treatment Upcoming Encounters Date Type Department Care Team (Late st Contact Info) Description 10/25/2023 1:40 PM EDT Office Visit Family Practice [facility] [place] [address] [place] [address] Kimmie Arambula MD [address] [facility] [place] [address] 01/06/2024 3:00 PM EDT Office Visit [facility] Disorders Ctr [facility] [place] [address] [place] [phone] Aida Marie DO [address] [place] [address] 03/10/2024 2:20 PM EDT Telemedicine Nutrition & Weight Management, [place] [address] [place] [address] Maile Aragon CRNP [address] [place] [address] 05/30/2024 2:00 PM EST Office Visit Gynecology/Obstetrics [facility] [address] [place] [address] Linnette Ovalle CRNP [address] [place] [address] Health Maintenance Due Date Last Done Comments Pneumococcal Vaccine: Pediatrics (0 to 5 Years) and At-Risk Patients (6 to 64 Years) (1 of 2 - PCV) 09/22/1985 Hepatitis B (1 of 3 - 19+ 3-dose series) 09/22/1998 HPV/Co-Test 09/22/2009 Mammogram 06/11/2022 06/11/2021, 05/21, 10/31/2019, Additional history exists COVID-19 Vaccine (3 - season) 2023 07/08/2021, 08/17/2020 Depression, Most [...]
--- OUTSIDE RECORDS SUMMARY | 2024-02-26 13:46 | External Medical Summary | Summary of Care ---
Author Name Unknown Organization [facility] Address [address] [place] [address] Phone [phone] Care Team Providers Care Consumer Affairs Specialist Name Role Phone nAgelo Bunch PA-C Primary Care Provide r Encounter Details Date Type Department Care Team (Late st Contact Info) Description 12/13/2023 Orders Only Outcomes Research Department [address] [place] [address] Heather Nguyen CHRA [employer] Other*[id number] Allergies Active Allergy Reactions Criticality Noted Date Comments Adhesive Tape 08/28/2009 Hydrocodone-Acetaminoph en Nausea/vomiting 03/23/2016 Nausea Meloxicam Nausea/vomiting Medium 12/08/2018 Fluoxetine Hcl Other (Please comment) 10/21/2009 Crying, anxious documented as of this encounter (statuses as of 12/13/2023) Medications Medication Sig Dispensed Refills Start Date [...] Additional Information Patient not taking.Reported on 11/29/2023 Amphetamine-Dextroam phetamine 10 MG Oral Tablet (Adderall)Indication s:Narcolepsy without cataplexy Take 1 Tablet by mouth 2 times a day in the morning and at noon. 60 Tablet 11/19/2023 Active Amphetamine-Dextroam phet ER 20 MG Oral Capsule Extended Release 24 Hour (Adderall XR)Indications:Narco lepsy without cataplexy Take 1 Capsule by mouth 2 times a day in the morning and at noon. To be taken along with Adderall IR 10mg twice a day 60 Capsule 11/19/2023 Active Omeprazole 40 MG Oral Capsule Delayed Release (PriLOSEC) Take 1 Capsule by mouth in the morning. 09/15/2023 Active predniSONE 10 MG Oral Tablet (Deltasone)Indicatio ns:Primary osteoarthritis of left knee,Strain of left hamstring muscle, initial encounter Take 5 tabs for 2 days, 4 tabs for 2 days, 3 tabs for 2 days, 2 tabs for 2 days 1 tab for 2 days 30 Tablet 11/29/2023 Active documented as of this encounter (statuses as of 12/13/2023) Active Problems Problem Noted Date Diagnosed Date [...] as of this encounter (statuses as of 12/13/2023) Resolved Problems Problem Noted Date Diagnosed Date [...] as of this encounter (statuses as of 12/13/2023) Immunizations Name Administration Dates Next Due COVID-19 mRNA, LNP-s, No Pre serve, 2-Dose Series ([employer]) 07/08/2021,08/17/2020 PPD 09/04/2013,08/25/2013,08/14/2013 08/16/2013 Seasonal Influenza Virus [...] on file documented as of this encounter Plan of Treatment Upcoming Encounters Date Type Department Care Team (Late st Contact Info) Description 01/06/2024 3:00 PM EDT Office Visit [facility] [address] [place] [phone] Aida Marie DO [address] [place] [address] 03/10/2024 2:20 PM EDT [facility] [address] [place] [address] Maile Aragon CRNP [address] [place], [place] [id number] 04/17/2024 1:40 PM EDT [facility] [address] [place] [address] Angelo Bunch PA-C [address] [place] [address] 05/30/2024 2:00 PM EST Office Visit [facility]necology[facility]stetrics [facility] [address] [place] [address] Linnette Ovalle CRNP [address] [place] [address] Scheduled Orders Name Type Priority Associated Diagnoses Orde r Schedule MYCODE SUBSEQUENT ADULT Lab Routine [employer] Research Other*[id number] Every 6 Months for 2 Occurrences starting 12/13/2023 until 01/01/2025 Health Maintenance Due Date Last Done Comments Pneumococcal Vaccine: Pediatrics (0 to 5 Years) and At-Risk Patients (6 to 64 Years) (1 of 2 - PCV) 09/22/1985 Hepatitis B (1 of 3 - 19+ 3-dose series) 09/22/1998 HPV/Co-Test 09/22/2009 Mammogram 06/11/2022 06/11/2021, 05/21, 10/31/2019, Additional history exists COVID-19 Vaccine (3 - 2022- season) 2023 07/08/2021, 08/17/2020 Depression Monitoring 07/05/2024 07/05/2023 Cervical Cancer Screening [...] as of this encounter Visit Diagnoses Diagnosis [employer] Other*[id number] documented in this encounter Care Teams Consumer Affairs Specialist Relationship Specialty Start Date End Date Angelo Bunch PA-C [facility] [place] [address] PCP - General Physician Open Hearth Melter 11/29/23 documented as of this encounter
--- OUTSIDE RECORDS SUMMARY | 2024-02-26 13:46 | External Medical Summary | Summary of Care ---
Author Name Unknown Organization [facility] Address [address] [place] [address] Phone [phone] Care Team Providers Care Shredded Filler Cutter Operator Name Role Phone Angelo Bunch PA-C Primary Care Provide r Reason for Visit * Reason Comments Acute Left knee and leg pa in for past month, started in just knee but then started spreading throughout leg, pretty consistent, has been taking Tyl, no injury pt is aware of, pain keeping up night, worse after sitting and then standing up. Encounter Details Date Type Department Care Team (Latest Contact Info) Description 11/29/2023 10:20 AM EDT Office Visit [facility] [address] [place] [address] Angelo Bunch PA-C [address] [place] [address] Primary osteoarthritis of left knee*; Strain of left hamstring muscle, initial encounter; Gastroesophageal reflux disease without esophagitis; Class 2 obesity due to excess calories without serious comorbidity with body mass index (BMI) of 38.0 to 38.9 in adult Allergies Active Allergy Reactions Criticality Noted Date Comments Adhesive Tape 08/28/2009 Hydrocodone-Acetaminoph en Nausea/vomiting 03/23/2016 Nausea Meloxicam Nausea/vomiting Medium 12/08/2018 Fluoxetine Hcl Other (Please comment) 10/21/2009 Crying, anxious documented as of this encounter (statuses as of 11/29/2023) Medications Medication Sig Dispensed Refills Start Date [...] Additional Information Patient not taking.Reported on 11/29/2023 Amphetamine-Dextroa mphetamine 10 MG Oral Tablet (Adderall)Indicatio ns:Narcolepsy without cataplexy Take 1 Tablet by mouth 2 times a day in the morning and at noon. 60 Tablet 11/19/2023 Active Amphetamine-Dextroa mphet ER 20 MG Oral [...] for 2 days 30 Tablet 11/29/2023 Active Wakix 17.8 MG Oral Tablet (Pitolisant HCl) TAKE 2 TABLETS BY MOUTH 1 TIME A DAY UPON AWAKENING. 60 Tablet 5 08/18/2023 4 Discontinu ed(End of Procedure) Wegovy 0.25 MG/0.5ML Subcutaneous Solution Auto-injector (Semaglutide-Weight Management)Indicati ons:Morbid obesity due to excess calories (HCC) Inject 0.25 mg (1 pen) under the skin once a week for 12 doses. 2 mL 2 10/05/2023 4 Discontinu ed(End of Procedure) documented as of this encounter (statuses as of 11/29/2023) Active Problems Problem Noted Date Diagnosed Date [...] as of this encounter (statuses as of 11/29/2023) Resolved Problems Problem Noted Date Diagnosed Date [...] as of this encounter (statuses as of 11/29/2023) Immunizations Name Administration Dates Next Due COVID-19 mRNA, LNP-s, No Pre serve, 2-Dose Series ([employer]) 07/08/2021,08/17/2020 PPD 09/04/2013,08/25/2013,08/14/2013 08/16/2013 Seasonal Influenza Virus [...] Sign Reading Time Taken Comments Blood Pressure 138/78 11/29/2023 10:18 AM EDT Pulse 97 11/29/2023 10:18 AM EDT Temperature 36.8 C (98.2 F) 11/29/2023 10:18 AM E DT Respiratory Rate 18 11/29/2023 10:18 AM EDT Oxygen Saturation 98% 11/29/2023 10:18 AM EDT Inhaled Oxygen Concentration - - Weight 97.5 kg (215 lb) 11/29/2023 10:18 AM EDT Height 160 cm (5' 3") 11/29/2023 10:18 AM EDT Body Mass Index 38.09 11/29/2023 10:18 AM EDT documented in this encounter Progress Notes * Angelo Bunch PA-C - 11/29/2023 10:43 AM EDT Images from the original note were not included. History of Present Illness Diane Orellana is a 43 year old female that presents for acute visit. Patient reports progressively worsening left knee pain over the past month. She has a history of bilateral knee osteoarthritis the past year or so. No apparent injury be an old or new. Her pain is inthe bilateral anterior knee, but is also more recently felt in the posterior knee/hamstring. Pain is worse with sitting for long periods. Can reach an 8/10 on the pain scale. Keeps her up at night. Dimitri higuera has been using primarily Tylenol, as she can not tolerate frequent NSAID use due to history of GERD. Denies knee locking or giving out. Last knee x-ray from 07/2022 showed mild arthritic changes. She has chronic low back pain but no specific radiculopathy down the leg; states she has had sciatica in the past and does not report any of those symptoms. Denies any numbness/tingling. Patient Active Problem List Diagnosis GENERALIZED ANXIETY DISORDER Acne vulgaris Gastroesophageal reflux disease with esophagitis Narcolepsy without cataplexy Obesity, Class II, BMI 35-39.9, isolated (see actual BMI) Irritable bowel syndrome Fibromyalgia Obsessive-compulsive disorder Attention deficit disorder (ADD) without hyperactivity Chronic maxillary sinusitis Moderate episode of recurrent major depressive disorder (HCC) History of nasal polyposis Deviated nasal septum History of 2019 novel coronavirus disease (COVID-19) Bilateral chronic serous otitis media Class 3 severe obesity due to excess calories with serious comorbidity and body mass index (BMI) of40.0 to 44.9 in adult ([facility]) Review of patient's allergies indicates: Allergen Reactions Meloxicam Nausea/vomiting Adhesive Tape Hydrocodone-Acetaminophen Nausea/vomiting Nausea Prozac [Fluoxetine Hcl] Other (Please comment) Crying, anxious Current Outpatient Medications Medication Sig Dispense Refill Amphetamine-Dextroamphetamine 10 MG Oral Tablet (Adderall) Take [...] IR 10mg twice aday 60 Capsule 0 Omeprazole 40 MG Oral Capsule Delayed Release (PriLOSEC) Take 1 Capsule by mouth in the morning. predniSONE 10 MG Oral Tablet (Deltasone) Take 5 tabs for 2 days, 4 tabs for 2 days, 3 tabs for 2 days, 2 tabs for 2 days 1 tab for 2 days 30 Tablet 0 Vitron-C 65-125 MG Oral Tablet (Iron-Vitamin C 65-125 mg per tab) Take 1 Tablet by mouth in the morning and 1 Tablet before bedtime. (Patient not taking: Reported on 11/29/2023) 60 Tablet 11 B-12 1000 MCG Oral Tablet Take 1,000 mcg by mouth in the morning. (Patient not taking: Reported on 11/29/2023) 30 Tablet 11 No current facility-administered medications for this visit. Past Medical History: Diagnosis Date ACNE 10/21/2009 [...] reports not smoking at NOB visit 03/24 SPRAIN LUMBOSACRAL 01/20/2010 Past Surgical History: Procedure Laterality Date CRANIOFACIAL APPROACH, EXTRADURAL 09/20/95 INFORMATION Bilateral 2013 essure coils placed LAPAROSCOPY; CHOLECYSTECTOMY N/A 04/20/2017 LAPAROSCOPIC CHOLECYSTECTOMY performed by Vladimir Chisholm MD at OR [facility] REMOVAL OF ETHMOID SINUS,EXTRANASAL 09/20/95 Family History Problem Relation Name Age of Onset Depression Mother Benign Breast Condition Mother Hypertension Father Other (non hodgkins lymphoma) Father Hyperlipidemia Father Thyroid Disorder Father No Past Hx Brother COPD Grandmother (Maternal) COPD Grandmother (Paternal) Heart failure Grandmother (Paternal) Family Status Relation Status Mo Alive Fa Alive Bro Alive Jennifer Alive Son Alive Son Alive MGMA (Not Specified) PGMA (Not Specified) Social History Socioeconomic History Marital status: Tobacco Use Smoking status: Former Current packs/day: 0.25 Types: Cigarettes Smokeless tobacco: Never Tobacco comments: quit 2013 - smoked on and off x 10 years/ no passive smoke Vaping Use Vaping status: Never Used Substance and Sexual Activity Alcohol use: No Drug use: No Sexual activity: Yes Partners: Male control/protection: Implant Comment: trino 2013 Social Determinants of Health Food Insecurity: No Food Insecurity (07/05/2023) Hunger Vital Sign Worried About Running Out of Food in the Last Year: Never true Ran Out of Food in the Last Year: Never true Review of Systems Constitutional: Negative. Respiratory: Negative. Negative for shortness of breath. Cardiovascular: Negative. Negative for chest pain and leg swelling. Gastrointestinal: Positive for abdominal pain. Negative for blood in stool, constipation, diarrhea,nausea and vomiting. Musculoskeletal: Positive for arthralgias, gait problem and joint swelling. Skin: Negative. Neurological: Negative for weakness and numbness. Psychiatric/Behavioral: Negative. Physical Exam BP 138/78 | Pulse 97 | Temp 36.8 C (98.2 F) | Resp 18 | Ht 1.6 m (5' 3") | Wt 97.5 kg (215 lb) | SpO2 98% | BMI 38.09 kg/m | BSA 2.08 m Physical Exam Vitals and nursing note reviewed. Constitutional: Appearance: Normal appearance. She is obese. Cardiovascular: Rate and Rhythm: Normal rate and regular rhythm. Pulses: Normal pulses. Heart sounds: Normal heart sounds. No murmur heard. Pulmonary: Effort: Pulmonary effort is normal. Breath sounds: Normal breath sounds. No wheezing, rhonchi or rales. Musculoskeletal: General: Normal range of motion. Right lower leg: No edema. Left lower leg: No edema. Comments: Left knee normal to inspection with just mild edema; no effusion or erythema; no particular tenderness to palpation of the anterior knee, although she points to the medial/lateral tibial plateaus when asked to identify areas of pain; full range of motion; valgus/varus tests negative; anterior/posterior drawer negative; Ezio's negative Neurological: General: No focal deficit present. Mental Status: She is alert and oriented to person, place, and time. Sensory: No sensory deficit. Motor: No weakness. Deep Tendon Reflexes: Reflexes normal. Psychiatric: Mood and Affect: Mood normal. Behavior: Behavior normal. Thought Content: Thought content normal. Judgment: Judgment normal. Assessment and Plan Primary osteoarthritis of left knee Suspect worsening osteoarthritis in the left knee, and also that she has been compensating the limpwhich is further added to her left hamstring pain. Will treat with 10 day course of prednisone. Discussed PT, but she declines for now. We will give an order for an updated x-ray. If her symptoms persist, she will likely need to try PT. If symptoms persist after PT, refer to ortho and obtain MRI. - predniSONE 10 MG Oral Tablet (Deltasone); Take 5 tabs for 2 days, 4 tabs for 2 days, 3 tabs for 2days, 2 tabs for 2 days 1 tab for 2 days - XR KNEE 4 OR MORE VIEWS Strain of left hamstring muscle, initial encounter - predniSONE 10 MG Oral Tablet (Deltasone); Take 5 tabs for 2 days, 4 tabs for 2 days, 3 tabs for 2days, 2 tabs for 2 days 1 tab for 2 days - XR KNEE 4 OR MORE VIEWS Gastroesophageal reflux disease without esophagitis Continues on high-dose PPI. She does follow with GI and is aware that she has due for an upper endoscopy. In the process of scheduling this. Class 2 obesity due to excess calories without serious comorbidity with body mass index (BMI) of 38.0 to 38.9 in adult Wrap-Up Follow Up: Return in about 4 months (around 03/30/2024), or if symptoms worsen or fail to improve, for 4 months for routine. | For: 4 months for routine Time: I spent a total of 20-29 minutes (exact time 20 mins) on the date of service in preparation, delivery, and documentation of the care provided to Diane Orellana excluding any time spent in the performance of separately billed services. documented in this encounter Nursing Notes * Gertrudis Murphy LPN - 11/29/2023 10:20 AM EDT Chief Complaint Patient presents with Acute Left knee and leg pain for past month, started in just knee but then started spreading throughout leg, pretty consistent, has been taking Tyl, no injury pt is aware of, pain keeping up night, worse after sitting and then standing up. documented in this encounter Plan of Treatment Upcoming Encounters Date Type Department Care Team (Late st Contact Info) Description 01/06/2024 3:00 PM EDT Office Visit [facility] [address] [place] [phone] Aida Marie DO [address] [facility] [place] [address] 03/10/2024 2:20 PM EDT Telemedicine Nutrition & Weight Management, [place] [address] [place] [address] Maile Aragon CRNP [address] [facility] [address] 04/17/2024 1:40 PM EDT Office Visit Family [facility] [address] [place] [address] Angelo Bunch PA-C [address] [place] [address] 05/30/2024 2:00 PM EST Office Visit Gynecology/Obstetrics [facility] [address] [place] [address] Backer, Linnette MajorOSIEL [address] [place] [address] Scheduled Orders Name Type Priority Associated Diagnoses Orde r Schedule XR KNEE 4 OR MORE VIEWS Medical Imaging Routine Primary osteoarthritis of left knee Strain of left hamstring muscle, initial encounter Ordered: 11/29/2023 Health Maintenance Due Date Last Done Comments [...] as of this encounter Visit Diagnoses Diagnosis Primary osteoarthritis of left knee- Primary Primary localized osteoarthrosis, lower leg Strain of left hamstring muscle, initial encounter Gastroesophageal reflux disease without esophagitis Esophageal reflux Class 2 obesity due to excess calories without serious comorbidity with body mass index (BMI) of 38.0 to 38.9 in adult documented in this encounter Care Teams Shredded Filler Cutter Operator Relationship Specialty Start Date End Date Angelo Bunch PA-C [address] [facility] [place] [address] PCP - General Physician Cash Grain Grower 11/29/23 documented as of this encounter
--- OUTSIDE RECORDS SUMMARY | 2024-02-26 13:46 | External Medical Summary | Summary of Care ---
Author Name Unknown Organization [facility] Address [address] [place] [address] Phone [phone] Care Team Providers Care Biostatistician Name Role Phone Angelo Bunch PA-C Primary Care Provide r Reason for Visit * Reason Onset Date Comments Medication Refill 12/20/2023 Amphetamine-De xtroamphetamine 10 MG Oral Tablet (Adderall) Encounter Details Date Type Department Care Team (Late st Contact Info) Description 12/20[facility]2023 [facility] [address] [place] [phone] Vik Wesley, [address] [place] [address] Narcolepsy without cataplexy* Allergies Active Allergy Reactions Criticality Noted Date Comments Adhesive Tape 08/28/2009 Hydrocodone-Acetaminoph en Nausea/vomiting 03/23/2016 Nausea Meloxicam Nausea/vomiting Medium 12/08/2018 Fluoxetine Hcl Other (Please comment) 10/21/2009 Crying, anxious documented as of this encounter (statuses as of 12/21/2023) Medications Medication Sig Dispensed Refills Start Date [...] Information Patient not taking.Reported on 11/29/2023 Amphetamine-Dextroa mphet ER 20 MG Oral Capsule [...] morning and at noon. 60 Tablet 12/21/2023 Active Amphetamine-Dextroa mphetamine 10 MG Oral Tablet (Adderall)Indicatio ns:Narcolepsy without cataplexy Take 1 Tablet by mouth 2 times a day in the morning and at noon. 60 Tablet 11/19/2023 4 Discontinu ed(Refill) documented as of this encounter (statuses as of 12/21/2023) Active Problems Problem Noted Date Diagnosed Date [...] as of this encounter (statuses as of 12/21/2023) Resolved Problems Problem Noted Date Diagnosed Date [...] as of this encounter (statuses as of 12/21/2023) Immunizations Name Administration Dates Next Due COVID-19 mRNA, LNP-s, No Pre serve, 2-Dose Series ([employer]) 07/08/2021,08/17/2020 PPD 09/04/2013,08/25/2013,08/14/2013 08/16/2013 Seasonal Influenza Virus [...] Telephone Encounter - Vik Wesley DO - 12/21/2023 7:56 AM EDTSigned Prescriptions: Disp Refills Amphetamine-Dextroamphetamine 10 MG Oral T*60 Tab*0 Sig: Take 1 Tablet by mouth 2 times a day in the morning and at noon.Authorizing Provider: VIK WESLEY--- * Telephone Encounter - Violetta Quevedo LPN - 12/21/2023 7:32 AM EDTPending Prescriptions: Disp Refills Amphetamine-Dextroamphetamine 10 MG Oral T*60 Tab*0 Sig: Take 1Tablet by mouth 2 times a day in the morning and at noon. documented in this encounter Plan of Treatment Upcoming Encounters Date Type Department Care Team (Late st Contact Info) Description 01/06/2024 3:00 PM EDT [facility] [address] [place] [phone] Aida Marie DO [address] [place] [address] 03/10/2024 2:20 PM EDT Telemedicine Nutrition & Weight Management, [place] [address] [place], [place] [id number] Maile Aragon CRNP [address] [place] [address] 04/17/2024 1:40 PM EDT Office Visit [facility] [place] [address] [place] [address] Angelo Bunch PA-C [address] [place] [address] 05/30/2024 2:00 PM EST Office Visit Gynecology/Obstetrics [facility] [address] [place] [address] Linnette Ovalle CRNP [address] [place] [address] Health Maintenance Due Date Last Done Comments Pneumococcal Vaccine: Pediatrics (0 to 5 Years) and At-Risk Patients (6 to 64 Years) (1 of 2 - PCV) 09/22/1985 Hepatitis B (1 of 3 - 19+ 3-dose series) 09/22/1998 HPV/Co-Test 09/22/2009 Mammogram 06/11/2022 06/11/2021, 05/21, 10/31/2019, Additional history exists COVID-19 Vaccine (3 - 2023-24 season) 2023 07/08/2021, 08/17/2020 Influenza Vaccine (FLU shot) (#1) 2024 07/05/2023, 03/21/2022, 03/26/2021, Additional history exists Depression Monitoring 07/05/2024 07/05/2023 Cervical Cancer Screening 02/05/2025 Pap Smear 02/05/2025 02/05/2022, 08/19, 05/04/2017, Additional history exists Diabetes Screening 07/14/2026 07/14/2023, 0 07/14/2023, 03/31/2021, Additional history exists Lipid Panel 07/14/2028 07/14/2023, 03/21, 06/08/2020, Additional history exists DTaP,Tdap,and Td Vaccines (3 - Td or Tdap) 10/17/2030 10/17/2020, 08/13/2010 GARDASIL-HPV IMMUNIZATION SERIES Aged Out No longer eligible based on patient's age to complete this topic MENINGOCOCCAL (MENACTRA/MENVEO) Aged Out No longer eligible based on patient's age to complete this topic documented as of this encounter Medical Devices Not on filedocumented as of this encounter Visit Diagnoses Diagnosis Narcolepsy without cataplexy- Primary documented in this encounter Care Teams Biostatistician Relationship Specialty Start Date End Date Angelo Bunch PA-C [address] [facility] [place] [address] PCP - General Physician Installer Metal Flooring 11/29/23 documented as of this encounter
--- OUTSIDE RECORDS SUMMARY | 2024-02-26 13:46 | External Medical Summary | Summary of Care ---
Author Name Unknown Organization [facility] Address [address] [facility] [place] [address] Phone [phone] Care Team Providers Care Medical Secretary Teacher Name Role Phone Unavailable Primary Care Provider Unavailabl e Reason for Visit * Reason Onset Date Comments Medication Refill 11/18/2023 Encounter Details Date Type Department Care Team (Late st Contact Info) Description 11/18/2023 Refill [facility] [address] [place] [phone] Vik Wesley DO [address] [place] [place] [address] Narcolepsy without cataplexy Allergies Active Allergy Reactions [...] PM EDT Office Visit Sleep Disorders Ctr [facility] [address] [place] [phone] Aida Marie DO [address] [place] [address] 03/10/2024 2:20 PM EDT Telemedicine [facility] [place] [address] Maile Aragon CRNP [address] [place] [address] 05/30/2024 2:00 PM EST Office Visit Gynecology/Obstetrics [facility] [address] [place] [address] Linnette Ovalle CRNP [address] [place] [place] [address] Health Maintenance Due Date Last Done Comments [...]
--- OUTSIDE RECORDS SUMMARY | 2024-02-26 13:46 | External Medical Summary | Summary of Care ---
Author Name Unknown Organization [facility] Address [address] [facility] [place] [address] Phone [phone] Care Team Providers Care Adding Machine Servicer Name Role Phone Unavailable Primary Care Provider Unavailabl e Reason for Visit * Reason Onset Date Comments Precert In Process 08/27/2023 11 [address] [facility] OPTUMRX Wakix 17.8 mg tablets Encounter Details Date Type Department Care Team (Late st Contact Info) Description 08/27/2023 Telephone Sleep Disorders Ctr [facility] [address] [place] [phone] Aida Marie DO [address] [place] [address] Precert In Process (11 [address] [facility] OPTUMRX W... Allergies Active Allergy Reactions Criticality Noted Date [...] mRNA, LNP-s, No Pre serve, 2-Dose Series ([employer]) 07/08/2021,08/17/2020 PPD 09/04/2013,08/25/2013,08/14/2013 08/16/2013 Seasonal Influenza Virus [...] EDT Office Visit Nutrition & Weight Management, [facility] [address] [place] [address] Lizzette Reynolds PA-C [address] [place] [address] 10/22/2023 12:20 PM EDT Office Visit Family Practice [facility] [place] [address] [facility] [place] [address] Annette Bunch PA-C [address] [facility] [place] [address] 01/06/2024 3:00 PM EDT Office Visit [facility] Disorders [facility] [address] [place] [phone] Aida Marie, [address] [place] [address] 05/30/2024 2:00 PM EST Office Visit Gynecology/Obstetrics [facility] [address] [place] [address] Linnette Ovalle CRNP [address] [place] [address] Health Maintenance Due Date Last Done Comments [...]
--- NOTE | 2024-02-26 14:21 | Emergency Department Note ---
Impression & Plan Abdominal pain ED Provider Note ED Provider Note NAME: ALANA FRYE AGE:43 SEX: Female : 1980 ARRIVES VIA: Private vehicle INFORMANT: Patient ED PROVIDER(s): Ericka Bone DO CHIEF COMPLAINT: Abdominal pain HPI: This is a 43-year-old female who presents emerged ferment due to concern for abdominal pain and change in bowel movements. Patient states she felt unwell earlier in the week and that perhaps she was getting a viral illness. She states she had a sore throat, slight change to her voice, and increased fatigue. She states on she began noticing some central and slightly right-sided abdominal pain. She states she was having small frequent stools, no melena or hematochezia. She states yesterday evening she began to notice that her abdominal pain felt as though it was radiating up under her right shoulder when she would lay flat. She states the pain is worse with any movement or position change. She states she began to have decreased appetite and increased nausea and last night had several episodes of vomiting. She denies fevers or chills. No known sick contact. No recent change in diet or medications, no recent travel. She has had a prior cholecystectomy. Patient concern for evolving bowel obstruction which she had 5 years ago additionally. She does have a prior history of Day's esophagus and has previously had EGD. Family states she also had prior colonoscopy several years ago which was reported to her as well appearing. No known history of IBS or IBD. PAST MEDICAL HISTORY:See Below PAST SURGICAL HISTORY:See Below FAMILY HISTORY:See Below SOCIAL HISTORY:See Below HOME MEDICATIONS:See Below ALLERGIES:See Below VITALS:See Below PHYSICAL EXAMINATION: GENERAL: alert, uncomfortable appearing, well nourished, no distress, non-toxic EYE EXAM: normal conjunctiva, PERRL and EOM's grossly intact OROPHARYNX: no exudate, no erythema, lips, buccal mucosa, and tongue normal and mucous membranes are mildly dry NECK: supple, no nuchal rigidity, no adenopathy, non-tender LUNGS: Clear to auscultation. Normal chest wall mechanics, no w/r/r HEART: no murmurs, S1 normal and S2 normal ABDOMEN: abdomen soft, pain with palpation in the midepigastric and right upper quadrant, normo-active bowel sounds, no masses, no rebound or guarding. BACK: Back is symmetrical on inspection and there is no deformity, no midline tenderness, no CVA tenderness. SKIN: no rashes, petechiae, orbruising UPPER EXTREMITIES: upper extremities are grossly normal. FROM, nml pulses b/l. LOWER EXTREMITIES: No pitting edema. FROM, nml pulses b/l. NEURO EXAM: Normal sensorium, cranial nerves II-XII grossly intact, normal speech, no facial droop,nogross weakness of arms, no gross weakness of legs. Gross sensation intact. No ataxia. Vital Signs: reviewed and remarkable Differential Diagnosis: sbo, colitis, perforation, viral syndrome, gastritis, diverticulitis, pna, medication adr, cholecystitis, pancreatitis, as well as others were considered MEDICAL DECISION MAKING: This is a 43 yo female who presents to the ER with concern for abdominal pain and possible sbo. She was afebrile and VS stable. Labs drawn and sent, IV established, and patient monitored on telemetry. She was started on IVF and given IV reglan and IV tylenol. She was sent for CT a/p which read as enteritis vs evolving SBO. IV toradol, IV pepcid added. Patient with continued pain and we discussed addition of IV morphine and additional inpatient mgmt, she verbalized understanding and was in agreement. Case discussed with the hospitalist team for additional evaluation and mgmt. Consultation(s): 1849: Discussed with Dr. Monreal, [facility] hospitalist team, for additional evaluation and management. ER Treatment Provided: See below Diagnostics Interpreted By Me: -ECG: Normal sinus at 86, rightward axis, normal intervals, inverted T waves noted in leads III, aVF, and V3 through V6; precordial T wave inversions new compared to August 03, 2020 -Cardiac Monitoring: An order was placed for continuous cardiac monitoring. The monitor shows a rate of 78 with normal sinus rhythm. -Laboratory studies: As stated above and show below. 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 Beliefs That Will Affect Care: None Current Living Situation: Spouse Feels Safe at Home: Yes Safety Concerns: Feels Safe At This Time Assistive Devices: None Allergies Allergies Allergy/AdvReac Type Severity Reaction Status Date / Time morphine AdvReac Abdominal Verified 02/27/24 00:19 Pain Home Meds Home Medications Medication Instructions Recorded Confirmed dextroamphetamine-amphetamine 10 10 mg PO BID 02/26/24 02/26/24 mg tablet dextroamphetamine-amphetamine ER 1 cap PO BID 02/26/24 02/26/24 20 mg 24hr capsule,extend release Results & Data (ED) Vital Signs Vital Signs - 24 hr 02/26/24 13:43 02/26/24 14:23 02/26/24 15:08 Temperature 36.4 C L Temperature Source Temporal Artery Scan Pulse Rate 97 H 86 Pulse Rate [Right Finger] 86 Pulse Rhythm Regular Pulse Rhythm [Right Finger] Regular Pulse Strength Normal Pulse Strength [Right Finger] Normal Respiratory Rate 18 18 Respiratory Effort / Characteristics Non-Labored Non-Labored Respiratory Depth Normal Normal Respiratory Pattern Regular Regular Blood Pressure 147/96 H Blood Pressure [Right Arm] 108/58 L Blood Pressure Mean 113 Blood Pressure Mean [Right Arm] 74 Blood Pressure Position [Right Arm] Sitting Pulse Oximetry 98 97 Oxygen Delivery Method Room Air Room Air Sepsis Recent Fever Within 48 Hours No Sepsis New/Unexplained Change in Mental Status No Sepsis Action Taken by Nursing No Action Required 02/26/24 18:10 02/26/24 18:25 Temperature Temperature Source Pulse Rate 80 Pulse Rate [Right Finger] 74 Pulse Rhythm Pulse Rhythm [Right Finger] Regular Pulse Strength Pulse Strength [Right Finger] Normal Respiratory Rate 20 Respiratory Effort / Characteristics Non-Labored Spontaneous Respiratory Depth Normal Respiratory Pattern Regular Blood Pressure Blood Pressure [Right Arm] 98/72 L Blood Pressure Mean Blood Pressure Mean [Right Arm] 80 Blood Pressure Position [Right Arm] Sitting Pulse Oximetry 96 Oxygen Delivery Method Room Air Sepsis Recent Fever Within 48 Hours Sepsis New/Unexplained Change in Mental Status Sepsis Action Taken by Nursing Laboratory Data 02/27/24 05:39 02/28/24 05:37 Lab Results 02/26/24 02/26/24 02/26/24 Range/Units 14:22 14:23 21:31 WBC 10.97 H (4.8-10.8) K/ul RBC 4.81 (4.20-5.40) M/uL Hgb 13.9 (12.0-16.0) g/dl Hct 41.6 (37.0-47.0) % MCV 86.5 (80.0-100.0) fL MCH 28.9 (25.0-34.0) pg MCHC 33.4 (32.0-36.0) g/dL RDW Std Deviation 39.8 (36.4-46.3) fL RDW Coeff of Ronald 12.6 (11.5-14.5) % Plt Count 339 (130-400) K/uL MPV 9.7 (9.4-12.4) fL Immature Gran % (Auto) 0.2 % Neut % (Auto) 68.4 % Lymph % (Auto) 21.4 % [place] % (Auto) 7.3 % Eos % (Auto) 2.3 % Baso % (Auto) 0.4 % Neut # (Auto) 7.51 H (1.40-6.50) K/uL Lymph # (Auto) 2.35 (1.20-3.40) K/uL [place] # (Auto) 0.80 H (0.11-0.59) K/uL Eos # (Auto) 0.25 (0.00-0.50) K/uL Baso # (Auto) 0.04 (0.00-0.20) K/uL Immature Gran # (Auto) 0.02 (0.01-0.20) K/uL PT 10.7 (9.0-12.0) Seconds INR 1.0 (0.9-1.1) Sodium 135 L (136-145) mmol/L Potassium 4.1 (3.5-5.1) mmol/L Chloride 103 (98-107) mmol/L Carbon Dioxide 25 (21-32) mmol/L Anion Gap 7 (3-11) BUN 9 (6-23) mg/dl Creatinine 0.67 (0.6-1.2) mg/dl Est Cr Clr Drug Dosing 117.5 ml/min Est GFR ( Amer) 123.9 ml/min Est GFR (Non-Af Amer) 106.9 ml/min BUN/Creatinine Ratio 13.4 (10-20) Glucose 107 H (70-99(Fasting)) mg/dl Lactate 0.9 (0.4-2.0) mmol/L Calcium 9.4 (8.6-10.3) mg/dl Magnesium 2.0 (1.7-2.4) mg/dl Total Bilirubin 0.3 (0.2-1.0) mg/dl AST 26 (13-39) U/L ALT 23 (7-52) U/L Alkaline Phosphatase 56 (34-104) U/L Troponin I High Sens < 2.3 2.6 (0-14) pg/ml Total Protein 7.8 (6.0-8.3) gm/dl Albumin 4.4 (3.4-5.0) gm/dl Globulin 3.4 (2.5-4.0) gm/dl Albumin/Globulin Ratio 1.3 (0.9-2) Lipase 13 (11-82) U/L HCG, Qual Negative (Negative) Urine Color Urine Appearance (Clear) Urine pH (4.5-7.5) Ur Specific [place] (1.000-1.030) Urine Protein (Negative) Urine Glucose (UA) (Negative) Urine Ketones (Negative) Urine Blood (Negative) Urine Nitrite (Negative) Urine Bilirubin (Negative) Urine Urobilinogen (Negative) Ur Leukocyte Esterase (Negative) Urine WBC (Auto) (0-5) /hpf Urine RBC (Auto) (0-2) /hpf U Hyaline Cast (Auto) (0-2) /lpf U Epithel Cells (Auto) (0-2) /hpf Urine Bacteria (Auto) (None Seen) Adenovirus (PCR) Not Detected (NotDetected) B. pertussis DNA (PCR) Not Detected (NotDetected) B.parapertussis DNA PCR Not Detected (NotDetected) C. pneumoniae DNA (PCR) Not Detected (NotDetected) Coronavirus OC43 (PCR) Not Detected (NotDetected) Coronavirus HKU1 (PCR) Not Detected (NotDetected) Coronavirus 229E (PCR) Not Detected (NotDetected) SARS-CoV-2 (PCR) Not Detected (NotDetected) Coronavirus NL63 (PCR) Not Detected (NotDetected) Human Metapneumovir PCR Not Detected (NotDetected) Influenza Type A (PCR) Not Detected (NotDetected) Influenza Type B (PCR) Not Detected (NotDetected) M. pneumoniae (PCR) Not Detected (NotDetected) Parainfluenza 1 (PCR) Not Detected (NotDetected) Parainfluenza 2 (PCR) Not Detected (NotDetected) Parainfluenza 3 (PCR) Not Detected (NotDetected) Parainfluenza 4 (PCR) Not Detected (NotDetected) RSV (PCR) Not Detected (NotDetected) Entero/Rhino (PCR) Not Detected (NotDetected) 02/26/24 02/27/24 Range/Units 23:45 05:39 WBC 8.93 (4.8-10.8) K/ul RBC 4.15 L (4.20-5.40) M/uL Hgb 11.9 L (12.0-16.0) g/dl Hct 36.2 L (37.0-47.0) % MCV 87.2 (80.0-100.0) fL MCH 28.7 (25.0-34.0) pg MCHC 32.9 (32.0-36.0) g/dL RDW Std Deviation 39.9 (36.4-46.3) fL RDW Coeff of Ronald 12.5 (11.5-14.5) % Plt Count 312 (130-400) K/uL MPV 10.0 (9.4-12.4) fL Immature Gran % (Auto) % Neut % (Auto) % Lymph % (Auto) % [place] % (Auto) % Eos % (Auto) % Baso % (Auto) % Neut # (Auto) (1.40-6.50) K/uL Lymph # (Auto) (1.20-3.40) K/uL [place] # (Auto) (0.11-0.59) K/uL Eos # (Auto) (0.00-0.50) K/uL Baso # (Auto) (0.00-0.20) K/uL Immature Gran # (Auto) (0.01-0.20) K/uL PT (9.0-12.0) Seconds INR (0.9-1.1) Sodium 138 (136-145) mmol/L Potassium 3.6 (3.5-5.1) mmol/L Chloride 107 (98-107) mmol/L Carbon Dioxide 26 (21-32) mmol/L Anion Gap 5 (3-11) BUN 9 (6-23) mg/dl Creatinine 0.66 (0.6-1.2) mg/dl Est Cr Clr Drug Dosing 120.1 ml/min Est GFR ( Amer) 124.5 ml/min Est GFR (Non-Af Amer) 107.4 ml/min BUN/Creatinine Ratio 13.6 (10-20) Glucose 85 (70-99(Fasting)) mg/dl Lactate (0.4-2.0) mmol/L Calcium 8.3 L (8.6-10.3) mg/dl Magnesium 1.8 (1.7-2.4) mg/dl Total Bilirubin (0.2-1.0) mg/dl AST (13-39) U/L ALT (7-52) U/L Alkaline Phosphatase (34-104) U/L Troponin I High Sens (0-14) pg/ml Total Protein (6.0-8.3) gm/dl Albumin (3.4-5.0) gm/dl Globulin (2.5-4.0) gm/dl Albumin/Globulin Ratio (0.9-2) Lipase (11-82) U/L HCG, Qual (Negative) Urine Color Dark Yellow Urine Appearance Clear (Clear) Urine pH 6.5 (4.5-7.5) Ur Specific [place] 1.043 H (1.000-1.030) Urine Protein Trace H (Negative) Urine Glucose (UA) Negative (Negative) Urine Ketones Negative (Negative) Urine Blood Negative (Negative) Urine Nitrite Negative (Negative) Urine Bilirubin Negative (Negative) Urine Urobilinogen Positive H (Negative) Ur Leukocyte Esterase Negative (Negative) Urine WBC (Auto) 0-5 (0-5) /hpf Urine RBC (Auto) 3-5 H (0-2) /hpf U Hyaline Cast (Auto) 0-2 (0-2) /lpf U Epithel Cells (Auto) 6-10 H (0-2) /hpf Urine Bacteria (Auto) 3+ H (None Seen) Adenovirus (PCR) (NotDetected) B. pertussis DNA (PCR) (NotDetected) B.parapertussis DNA PCR (NotDetected) C. pneumoniae DNA (PCR) (NotDetected) Coronavirus OC43 (PCR) (NotDetected) Coronavirus HKU1 (PCR) (NotDetected) Coronavirus 229E (PCR) (NotDetected) SARS-CoV-2 (PCR) (NotDetected) Coronavirus NL63 (PCR) (NotDetected) Human Metapneumovir PCR (NotDetected) Influenza Type A (PCR) (NotDetected) Influenza Type B (PCR) (NotDetected) M. pneumoniae (PCR) (NotDetected) Parainfluenza 1 (PCR) (NotDetected) Parainfluenza 2 (PCR) (NotDetected) Parainfluenza 3 (PCR) (NotDetected) Parainfluenza 4 (PCR) (NotDetected) RSV (PCR) (NotDetected) Entero/Rhino (PCR) (NotDetected) Administered Medications Acetaminophen (Acetaminophen 325 Mg Tab) 650 mg PO Q4H PRN PRN Reason: Pain or Fever Stop: 03/27/24 20:54 Last Admin: 02/27/24 21:20 Dose: 650 mg Documented By: Admin: 02/27/24 10:59 Dose: 650 mg Documented By: BRADLEY Pantoprazole Sodium 40 mg/ (Syringe) 10 mls @ 5 mls/min IV DAILY@1100 [facility] Stop: 03/28/24 10:59 Last Admin: 02/27/24 11:00 Dose: 5 mls/min Documented By: BRADLEY Piperacillin Sod/Tazobactam Sod (Zosyn) 4.5 gm in 100 mls @ 25 mls/hr IV Q8H [facility] Stop: 02/29/24 03:59 Last Infusion: 02/28/24 08:22 Dose: Infused Documented By: Admin: 02/28/24 04:14 Dose: 25 mls/hr Documented By: Infusion: 02/28/24 00:20 Dose: Infused Documented By: Admin: 02/27/24 20:20 Dose: 25 mls/hr Documented By: Infusion: 02/27/24 16:36 Dose: Infused Documented By: Admin: 02/27/24 12:30 Dose: 25 mls/hr Documented By: Infusion: 02/27/24 08:20 Dose: Infused Documented By: Admin: 02/27/24 04:12 Dose: 25 mls/hr Documented By: SYLVESTER Acetaminophen (Ofirmev) 1,000 mg in 100 mls @ 400 mls/hr IV Q8H PRN PRN Reason: Pain or Fever Stop: 02/29/24 21:06 Last Infusion: 02/26/24 22:08 Dose: Infused Documented By: Admin: 02/26/24 21:53 Dose: 400 mls/hr Documented By: DC Potassium Chloride/Dextrose/Sod Cl (D5nss + 20meq Kcl) 20 meq in 1,000 mls @ 80 mls/hr IV .[id number] DANIEL Stop: 03/28/24 09:59 Last Admin: 02/28/24 01:56 Dose: 80 mls/hr Documented By: Infusion: 02/28/24 01:56 Dose: Infused Documented By: Admin: 02/27/24 13:33 Dose: 80 mls/hr Documented By: BRADLEY Melatonin (Melatonin 3 Mg Tab) 3 mg PO HS PRN PRN Reason: Sleep Stop: 03/28/24 19:38 Last Admin: 02/27/24 21:26 Dose: 3 mg Documented By: SYLVESTER Discontinued Medications Diphenhydramine HCl (Diphenhydramine 50 Mg/Ml Vial) 12.5 mg IV NOW STA Stop: 02/26/24 19:02 Last Admin: 02/26/24 19:24 Dose: 12.5 mg Documented By: TATE Fentanyl Citrate (Fentanyl Citrate Pf 100 Mcg/2 Ml Vial) 50 mcg IV Q15M PRN PRN Reason: Pain Stop: 03/11/24 19:01 Last Admin: 02/26/24 20:13 Dose: 50 mcg Documented By: [facility] Admin: 02/26/24 19:21 Dose: 50 mcg Documented By: TATE Sodium Chloride (Nss) 1,000 mls @ 999 mls/hr IV .Q1H1M ONE Stop: 02/26/24 15:09 Last Infusion: 02/26/24 18:41 Dose: Infused Documented By: [facility] Admin: 02/26/24 14:40 Dose: 999 mls/hr Documented By: MUKESH Pantoprazole Sodium 40 mg/ (Syringe) 10 mls @ 5 mls/min IV NOW ONE Stop: 02/26/24 14:10 Last Admin: 02/26/24 14:41 Dose: 5 mls/min Documented By: MUKESH Acetaminophen (Ofirmev) 1,000 mg in 100 mls @ 400 mls/hr IV NOW STA Stop: 02/26/24 14:23 Last Infusion: 02/26/24 15:00 Dose: Infused Documented By: [facility] [place] Admin: 02/26/24 14:40 Dose: 400 mls/hr Documented By: MUKESH Sodium Chloride (Nss) 1,000 mls @ 125 mls/hr IV .Q8H DANIEL Stop: 03/27/24 18:14 Last Infusion: 02/26/24 21:13 Dose: Infused Documented By: [facility] Admin: 02/26/24 18:48 Dose: 125 mls/hr Documented By: MARCO Famotidine (Pepcid 20mg Iv Push) 20 mg in 5 mls @ 2.5 mls/min IV NOW STA Stop: 02/26/24 19:03 Last Admin: 02/26/24 19:24 Dose: 2.5 mls/min Documented By: TATE Lactated Ringer's (Lr) 1,000 mls @ 80 mls/hr IV .[id number] DANIEL Stop: 03/27/24 20:54 Last Infusion: 02/26/24 22:17 Dose: Infused Documented By: [facility] Admin: 02/26/24 21:25 Dose: 80 mls/hr Documented By: SYLVESTER Piperacillin Sod/Tazobactam Sod (Zosyn) 4.5 gm in 100 mls @ 200 mls/hr IV NOW ONE Stop: 02/26/24 21:59 Last Infusion: 02/26/24 22:59 Dose: Infused Documented By: Admin: 02/26/24 22:25 Dose: 200 mls/hr Documented By: SYLVESTER Sodium Chloride (Nss) 1,000 mls @ 80 mls/hr IV .[id number] DANIEL Stop: 03/27/24 22:14 Last Infusion: 02/27/24 10:19 Dose: Infused Documented By: Infusion: 02/27/24 10:17 Dose: 0 mls/hr Documented By: Admin: 02/26/24 22:25 Dose: 80 mls/hr Documented By: SYLVESTER Ioversol (Optiray 320 100ml) 92 ml IV ONCE ONE Stop: 02/26/24 15:34 Last Admin: 02/26/24 15:33 Dose: 92 ml Documented By: KAELYN Ketorolac Tromethamine (Ketorolac Tromethamine 15 Mg/Ml Vial) 10 mg IV NOW ONE Stop: 02/26/24 17:04 Last Admin: 02/26/24 17:18 Dose: 10 mg Documented By: MAGDIEL Ketorolac Tromethamine (Ketorolac Tromethamine 15 Mg/Ml Vial) 15 mg IV NOW ONE Stop: 02/26/24 21:13 Last Admin: 02/26/24 21:27 Dose: 15 mg Documented By: SYLVESTER Metoclopramide HCl (Metoclopramide Hcl Inj 5 Mg/Ml 2 Ml Vial) 5 mg IV ONE ONE Stop: 02/26/24 14:10 Last Admin: 02/26/24 14:40 Dose: 5 mg Documented By: MUKESH Morphine Sulfate (Morphine Sulfate 4 Mg/Ml 1 Ml Carp\Vial) 4 mg IV NOW STA Stop: 02/26/24 18:16 Last Admin: 02/26/24 18:19 Dose: 4 mg Documented By: MAGDIEL Morphine Sulfate (Morphine Sulfate 4 Mg/Ml 1 Ml Carp\Vial) 4 mg IV NOW STA Stop: 02/26/24 18:45 Last Admin: 02/26/24 18:49 Dose: 4 mg Documented By: MARCO Ondansetron HCl (Ondansetron Inj 2 Mg/Ml 2 Ml Vial) 4 mg IV NOW STA Stop: 02/26/24 17:04 Last Admin: 02/26/24 17:18 Dose: 4 mg Documented By: MAGDIEL Imaging Data Radiologist's Impression: Abdomen/Pelvis CT 02/26/24 15:[address] WITH IV CONTRAST CT DOSE: 1437.29 mGy.cm HISTORY: Acute right-sided abdominal pain right abd pain, hx [place], +n/v TECHNIQUE: Multiaxial CT images of the abdomen and pelvis were performed following the IV administration of 92 cc of Optiray, A dose lowering technique was utilized adhering to the principles of ALARA. COMPARISON STUDY: None. FINDINGS: Clear lung bases. No free air. Unremarkable spleen, pancreas and adrenal glands. Cholecystectomy is likely postsurgical biliary ductal dilation. Unremarkable liver. Patency of the hepatic and portal veins. Unremarkable kidneys and urinary bladder. Bilateral tubo-ovarian occlusion devices, both of which extend into the isthmic portions of the fallopian tubes/uterus. Small amount of free pelvic fluid. Involuting left ovarian follicle, 1.9 cm. Aorta and IVC are unremarkable. Small hiatal hernia. Mild colonic diverticulosis. Normal appendix. Fluid-filled loops of small bowel measure up to 2.9 cm, several which demonstrate circumferential wall thickening with trace interloop edema. No discrete transition point. Lumbar levoscoliosis. No acute fracture. IMPRESSION: 1. Fluid-filled borderline dilated loops of small bowel within the midabdomen, several loops demonstrating mild wall thickening with interloop edema. Findings favor a nonspecific infectious or inflammatory enteritis with ileus. A low grade small bowel obstruction however could appear similarly. Close follow-up is recommended. 2. No pneumoperitoneum. 3. Normal appendix. 4. Cholecystectomy. 5. Involuting left ovarian follicle. ACT 112: Negative or not required by law. The above report was generated using voice recognition software. It may contain grammatical, syntax or spelling errors. Electronically signed by: Luis Carlos Brar M.D. 02/26/2024 4:18 PM Discharge Plan Visit Data Chief Complaint: Constipation Stated Complaint: ABD PAIN, CONSTIPATION, VOMITING ED Provider: Ericka Bone Discharge Problem: Abdominal pain Patient Disposition: Admitted As Inpatient Discharge Instructions Interventions: ED Discharge Assessment Last Done: 02/26/24 20:26 Discharge Problem: Abdominal pain Qualifiers: Abdominal location: unspecified location Qualified Code(s): R10.9 - Unspecified abdominal pain
[2024-02-26 14:37] LABS: Basophils # (auto) 0.04 K/uL (0.00-0.20); Basophils % (auto) 0.4 %; Eosinophils # (auto) 0.25 K/uL (0.00-0.50); Eosinophils % (auto) 2.3 %; Hematocrit (blood only) 41.6 % (37.0-47.0); Hemoglobin 13.9 g/dl (12.0-16.0); Immature Granulocytes # (auto) 0.02 K/uL (0.01-0.20); Immature Granulocytes % (auto) 0.2 %; Lymphocytes # (auto) 2.35 K/uL (1.20-3.40); Lymphocytes % (auto) 21.4 %; Mean Corpuscular Hemoglobin 28.9 pg (25.0-34.0); Mean Corpuscular Hgb Conc 33.4 g/dL (32.0-36.0); Mean Corpuscular Volume 86.5 fL (80.0-100.0); Mean Platelet Volume 9.7 fL (9.4-12.4); Monocytes % (auto) 7.3 %; Neutrophils # (auto) 7.51 K/uL (1.40-6.50); Neutrophils % (auto) 68.4 %; Platelet Count 339 K/uL (130-400); RDW Coefficient of Variation 12.6 % (11.5-14.5); RDW Standard Deviation 39.8 fL (36.4-46.3); Red Blood Count 4.81 M/uL (4.20-5.40); White Blood Count 10.97 K/ul (4.8-10.8)
[2024-02-26] MEDS: SODIUM CHLORIDE 0.9% 1,000 ML IV ONE (14:40)
[2024-02-26] MEDS: ACETAMINOPHEN 1,000 MG/100 ML VIAL IV STA (14:40)
[2024-02-26] MEDS: METOCLOPRAMIDE HCL INJ 5 MG/ML 2 ML VIAL IV ONE (14:40)
[2024-02-26] MEDS: PANTOprazole 40 MG in SYRINGE 0 ML IV ONE (14:41)
[2024-02-26 14:50] LABS: Pregnancy Test, Serum Negative (Negative)
[2024-02-26 14:53] LABS: Alanine Aminotransferase 23 U/L (7-52); Albumin Globulin Ratio 1.3 (0.9-2); Albumin Level 4.4 gm/dl (3.4-5.0); Alkaline Phosphatase 56 U/L (34-104); Anion Gap 7 (3-11); Aspartate Aminotransferase 26 U/L (13-39); BUN Creatinine Ratio 13.4 (10-20); Bilirubin,Total 0.3 mg/dl (0.2-1.0); Blood Urea Nitrogen 9 mg/dl (6-23); Calcium 9.4 mg/dl (8.6-10.3); Carbon Dioxide 25 mmol/L (21-32); Chloride 103 mmol/L (98-107); Creatinine Clr Calc Pharmacy 117.5 ml/min; Est GFR (African American) 123.9 ml/min; Est GFR (Non-African American) 106.9 ml/min; Globulin 3.4 gm/dl (2.5-4.0); Glucose 107 mg/dl (70-99(Fasting)); Lipase 13 U/L (11-82); Potassium 4.1 mmol/L (3.5-5.1); Sodium 135 mmol/L (136-145); Total Protein 7.8 gm/dl (6.0-8.3)
[2024-02-26 15:00] LABS: Troponin I High Sensitivity < 2.3 pg/ml (0-14)
[2024-02-26 15:11] LABS: Prothrombin Time 10.7 Seconds (9.0-12.0)
[2024-02-26] MEDS: OPTIRAY 320 100ml IV ONE (15:33)
[2024-02-26 15:48] LABS: Adenovirus PCR Not Detected (NotDetected); Bordetella parapertussis PCR Not Detected (NotDetected); Bordetella pertussis PCR Not Detected (NotDetected); Chlamydia pneumoniae PCR Not Detected (NotDetected); Coronavirus 229E PCR Not Detected (NotDetected); Coronavirus CoV-2 (COVID19)PCR Not Detected (NotDetected); Coronavirus HKU1 PCR Not Detected (NotDetected); Coronavirus NL63 PCR Not Detected (NotDetected); Coronavirus OC43PCR Not Detected (NotDetected); Human Metapneumovirus PCR Not Detected (NotDetected); Influenza A PCR Not Detected (NotDetected); Influenza B PCR Not Detected (NotDetected); Mycoplasma pneumoniae PCR Not Detected (NotDetected); Parainfluenza Virus 1 PCR Not Detected (NotDetected); Parainfluenza Virus 2 PCR Not Detected (NotDetected); Parainfluenza Virus 3 PCR Not Detected (NotDetected); Parainfluenza Virus 4 PCR Not Detected (NotDetected); Respiratory Syncytial VirusPCR Not Detected (NotDetected); Rhinovirus/Enterovirus PCR Not Detected (NotDetected)
--- NOTE | 2024-02-26 16:20 | CT Scan Report ---
ABDOMEN AND PELVIS CT WITH IV CONTRAST CT DOSE: 1437.29 mGy.cm HISTORY: Acute right-sided abdominal pain right abd pain, hx [place], +n/v TECHNIQUE: Multiaxial CT images of the abdomen and pelvis were performed following the IV administrat ion of 92 cc of Optiray, A dose lowering technique was utilized adhering to the principles of ALARA. COMPARISON STUDY: None. FINDINGS: Clear lung bases. No free air. Unremarkable spleen, pancreas and adrenal glands. Cholecyste ctomy is likely postsurgical biliary ductal dilation. Unremarkable liver. Patency of the hepatic and portal veins. Unremarkable kidneys and urinary bladder. Bilateral tubo-ovarian occlusion devices, bot h of which extend into the isthmic portions of the fallopian tubes/uterus. Small amount of free pelvi c fluid. Involuting left ovarian follicle, 1.9 cm. Aorta and IVC are unremarkable. Small hiatal hernia. Mild colonic diverticulosis. Normal appendix. Fluid-filled loops of small bowel measure up to 2.9 cm, several which demonstrate circumferential wall thickening with trace interloop edema. No discrete transition point. Lumbar levoscoliosis. No acute fracture. IMPRESSION: 1. Fluid-filled borderline dilated loops of small bowel within the midabdomen, several loops demonstr ating mild wall thickening with interloop edema. Findings favor a nonspecific infectious or inflammat ory enteritis with ileus. A low grade small bowel obstruction however could appear similarly. Close f ollow-up is recommended. 2. No pneumoperitoneum. 3. Normal appendix. 4. Cholecystectomy. 5. Involuting left ovarian follicle. ACT 112: Negative or not required by law. The above report was generated using voice recognition software. It may contain grammatical, syntax o r spelling errors. Electronically signed by: Luis Carlos Brar M.D. 02/26/2024 4:18 PM
[2024-02-26] MEDS: ONDANSETRON INJ 2 MG/ML 2 ML VIAL IV STA (17:18)
[2024-02-26] MEDS: KETOROLAC TROMETHAMINE 15 MG/ML VIAL IV ONE ×2 (17:18→21:27)
[2024-02-26] MEDS: MoRPHine SULFATE 4 MG/ML 1 ML CARP\\VIAL IV STA ×2 (18:19→18:49)
--- NOTE | 2024-02-26 18:41 | History & Physical Report ---
Date of Service February 26, 2024 Assessment & Plan (1) Abdominal pain: (2) Nausea and vomiting: Plan Diane Orellana is a 43y/o F with PMHx significant for chronic maxillary sinusitis, obesity, GERD with esophagitis, IBS, fibromyalgia, bilateral chronic serous otitis media, JEFF, depression and narcolepsy [on Adderall] who presented to the ED for evaluation of abdominal pain and nausea/vomiting. Abdominal Pain Nausea & Vomiting: History as per HPI. Question resolving SBO vs. possible enteritis. Slight leukocytosis, otherwise lab work unremarkable. RVP negative. UA pending. CTAP revealed findings concerning for infectious/inflammatory enteritis vs. low- grade SBO. Continue IVF. Pain regimen, bowel rest. IV Protonix daily. General surgery consulted. Empiric ABX coverage w/ IV Zosyn. Abnormal EKG: EKG w/ rightward axis, ST & T wave abnormalities. Patient denies any chest pain or SOB. Echo pending. Narcolepsy: Continue home Adderall as able. DVT Prophylaxis: SCDs/TEDs for now. Code Status: FULL CODE PCP: NO PCP Disposition: Observation in Med/Surg Patient seen in collaboration with Dr. Monreal. Please see addendum. I spent a total of 45 minutes coordinating, documenting, and providing care for this patient excluding time spent in the performance of separately billed services. This included personally reviewing all current laboratories and imaging studies, medical reconciliation, outpatient chart review and discussion with specialists. This chart was completed in part utilizing Speech Voice Recognition Software. Grammatical errors, random word insertions, pronoun errors, and incomplete sentences are an occasional consequence of this system due to software limitations, ambient noise, and hardware issues. Any formal questions or concerns about the content, text, or information contained within the body of this dictation should be directly addressed to the provider for clarification. History of Present Illness Chief Complaint: Abdominal Pain Primary Care Provider: NO PCP Diane Orellana is a 43y/o F with PMHx significant for chronic maxillary sinusitis, obesity, GERD with esophagitis, IBS, fibromyalgia, bilateral chronic serous otitis media, JEFF, depression and narcolepsy [on Adderall] who presented to the ED for evaluation of abdominal pain. History obtained from patient, at bedside and associated chart review. Patient seen at bedside with Dr. Monreal. Patient thought maybe she was having a SBO. Previous SBO around 5 years ago. Pain mostly in the RUQ and epigastric regions. Was previously a slow, steady pain but has been progressively getting worse since . Last BM yesterday morning - was very small and soft. No blood in her stool that she noticed. Had an episode of vomiting last night - "threw up everything she ate" per her . Some ongoing nausea. No fevers or chills. Denies any dizziness. No new medications. No smoking or alcohol use. Has been on Adderall for about 3 years. No recent travel or known sick contacts. Allergies Allergy/AdvReac Type Severity Reaction Status Date / Time morphine AdvReac Abdominal Verified 02/27/24 00:19 Pain Home Medications Medication Instructions Recorded Confirmed Type dextroamphetamine-amphetamine 10 10 mg PO BID 02/26/24 02/26/24 History mg tablet dextroamphetamine-amphetamine ER 1 cap PO BID 02/26/24 02/26/24 History 20 mg 24hr capsule,extend release Past Med/Surg History Problem List (Updated 02/26/24 @ 21:30 by Lio Carlos PA-C) Small bowel obstruction Nausea and vomiting Abdominal pain (Acute) Medical History Anxiety Surgical History No pertinent past surgical history Social History Smoking Status: Former smoker Do You Dip or Chew Tobacco: No; Hx Alcohol Use: No Hx Substance Use: No Preferred Language: Cypriot Communication Ability: Effective Flask Fitter Required: No Beliefs That Will Affect Care: None Current Living Situation: Spouse Feels Safe at Home: Yes Safety Concerns: Feels Safe At This Time Assistive Devices: Glasses Review of Systems Review of Systems: At least ten systems reviewed and negative, except as noted in the HPI. Physical Exam Physical Exam: Please refer to Dr. Monreal's addendum for physical examination findings. Results & Data Results & Data Vital Signs (Past 12 Hours) Vital Signs Temp Pulse Pulse Resp BP BP Pulse Ox 02/26/24 18:25 74 20 98/72 L 96 02/26/24 18:10 80 02/26/24 15:08 86 18 108/58 L 97 02/26/24 14:23 86 02/26/24 13:43 36.4 C L 97 H 18 147/96 H 98 O2 Del Method 02/26/24 18:25 Room Air 02/26/24 18:10 02/26/24 15:08 Room Air 02/26/24 14:23 02/26/24 13:43 Room Air Laboratory Results Short CBC 02/26/24 Range/Units 14:22 WBC 10.97 H (4.8-10.8) K/ul Hgb 13.9 (12.0-16.0) g/dl Hct 41.6 (37.0-47.0) % Plt Count 339 (130-400) K/uL BMP 02/26/24 14:22 Sodium 135 L Potassium 4.1 Chloride 103 Carbon Dioxide 25 BUN 9 Creatinine 0.67 Glucose 107 H Calcium 9.4 Liver Function 02/26/24 Range/Units 14:22 Total Bilirubin 0.3 (0.2-1.0) mg/dl AST 26 (13-39) U/L ALT 23 (7-52) U/L Alkaline Phosphatase 56 (34-104) U/L Albumin 4.4 (3.4-5.0) gm/dl Diagnostic Findings Abdomen/Pelvis CT 02/26/24 15:[address] WITH IV CONTRAST CT DOSE: 1437.29 mGy.cm HISTORY: Acute right-sided abdominal pain right abd pain, hx [place], +n/v TECHNIQUE: Multiaxial CT images of the abdomen and pelvis were performed foll owing the IV administration of 92 cc of Optiray, A dose lowering technique was utilized adhering to the principles of ALARA. COMPARISON STUDY: None. FINDINGS: Clear lung bases. No free air. Unremarkable spleen, pancreas and adrenal glands. Cholecystectomy is likely postsurgical biliary ductal dilation. Unremarkable liver. Patency of the hepatic and portal veins. Unremarkable kidneys and urinary bladder. Bilateral tubo-ovarian occlusion devices, both of which extend into the isthmic portions of the fallopian tubes/uterus. Small amount of free pelvic fluid. Involuting left ovarian follicle, 1.9 cm. Aorta and IVC are unremarkable. Small hiatal hernia. Mild colonic diverticulosis. Normal appendix. Fluid-filled loops of small bowel measure up to 2.9 cm, several which demonstrate circumfe rential wall thickening with trace interloop edema. No discrete transition point. Lumbar levoscoliosis. No acute fracture. IMPRESSION: 1. Fluid-filled borderline dilated loops of small bowel within the midabdomen, several loops demonstrating mild wall thickening with interloop edema. Findings favor a nonspecific infectious or inflammatory enteritis with ileus. A low grade small bowel obstruction however could appear similarly. Close follow-up is recommended. 2. No pneumoperitoneum. 3. Normal appendix. 4. Cholecystectomy. 5. Involuting left ovarian follicle. ACT 112: Negative or not required by law. The above report was generated using voice recognition software. It may contain grammatical, syntax or spelling errors. Electronically signed by: Luis Carlos Brar M.D. 02/26/2024 4:18 PM Medications Administered Discontinued Medications Sodium Chloride (Nss) 1,000 mls @ 999 mls/hr IV .Q1H1M ONE Stop: 02/26/24 15:09 Last Infusion: 02/26/24 18:41 Dose: Infused Documented By: Admin: 02/26/24 14:40 Dose: 999 mls/hr Documented By: MUEKSH Pantoprazole Sodium 40 mg/ (Syringe) 10 mls @ 5 mls/min IV NOW ONE Stop: 02/26/24 14:10 Last Admin: 02/26/24 14:41 Dose: 5 mls/min Documented By: MUKESH Acetaminophen (Ofirmev) 1,000 mg in 100 mls @ 400 mls/hr IV NOW STA Stop: 02/26/24 14:23 Last Infusion: 02/26/24 15:00 Dose: Infused Documented By: Admin: 02/26/24 14:40 Dose: 400 mls/hr Documented By: MUKESH Ioversol (Optiray 320 100ml) 92 ml IV ONCE ONE Stop: 02/26/24 15:34 Last Admin: 02/26/24 15:33 Dose: 92 ml Documented By: KAELYN Ketorolac Tromethamine (Ketorolac Tromethamine 15 Mg/Ml Vial) 10 mg IV NOW ONE Stop: 02/26/24 17:04 Last Admin: 02/26/24 17:18 Dose: 10 mg Documented By: MAGDIEL Metoclopramide HCl (Metoclopramide Hcl Inj 5 Mg/Ml 2 Ml Vial) 5 mg IV ONE ONE Stop: 02/26/24 14:10 Last Admin: 02/26/24 14:40 Dose: 5 mg Documented By: MUKESH Morphine Sulfate (Morphine Sulfate 4 Mg/Ml 1 Ml Carp\\Vial) 4 mg IV NOW STA Stop: 02/26/24 18:16 Last Admin: 02/26/24 18:19 Dose: 4 mg Documented By: MAGDIEL Ondansetron HCl (Ondansetron Inj 2 Mg/Ml 2 Ml Vial) 4 mg IV NOW STA Stop: 02/26/24 17:04 Last Admin: 02/26/24 17:18 Dose: 4 mg Documented By: MAGDIEL Code Status & VTE Plan Code Status FULL CODE Supervising Physician Co-Signing Physician Notes Patient is a 43-year-old female with history of GERD, obesity, fibromyalgia, irritable bowel syndrome, narcolepsy, Day's esophagus, depression and other medical problems presents with history of worsening abdominal pain since 3 days duration. She reports that her last bowel movement was yesterday which is small, soft associated with nausea, vomiting. Her appetite has been poor since the abdominal pain. She feels her symptoms are similar to her small bowel obstruction about 5 years ago. She denies any chest pain, dyspnea, fever, chills. She was not able to take her Adderall for the last 2 days secondary to her symptoms. She feels mostly constipated the last 3 to 4 days. Abdominal pain is predominantly epigastric, right upper quadrant in region. Please review HPI for complete details of presentation. I personally reviewed blood work and imaging studies. CT abdomen is concerning for possible infectious/inflammatory enteritis and low-grade small bowel obstruction. Her EKG showed normal sinus rhythm, T wave inversion in inferolateral leads. Physical Exam: Vitals signs as noted above General Appearance: Obese, no apparent distress Head: normocephalic, Atraumatic Eyes: normal inspection, EOMI Neck: supple, Trachea midline Respiratory/Chest: Normal breath sounds, CTA, No accessory muscle use Cardiovascular: S1, S2, No murmur Abdomen/GI:Soft, tender predominantly epigastric, right upper quadrant, Bowel sounds decreased Extremities/Musculoskeletal:normal inspection, no edema Neurologic/Psych:AAOX3, grossly no focal neurological deficits Skin: normal color, warm Small bowel obstruction ? resolving Possible enteritis Continue IV fluids, pain control, bowel rest Surgery consulted Empirically started on Zosyn Will repeat KUB tomorrow Will eventually need colonoscopy as outpatient Added PPI Obtain stool studies if develops diarrhea Urinalysis currently pending Abnormal EKG Denies any chest pain, dyspnea Check resting echo Will likely need stress test as outpatient Narcolepsy Resume Adderall as able I personally interviewed and examined at bedside. Patient's care is coordinated with Erin Tolbert PA-C. I have reviewed the advanced practitioner's documentation, and I agree with plan of care. Please refer to the documentation above for details of patient's presentation and for discussion of other issues. I spent a total of35 minutes coordinating, documenting, and providing care for this patient excluding time spent in the performance of separately billed services. (1) Abdominal pain Abdominal location: unspecified location Qualified Code(s): R10.9 - Unspecified abdominal pain (2) Nausea and vomiting Vomiting type: unspecified Qualified Code(s): R11.2 - Nausea with vomiting, unspecified
[2024-02-26] MEDS: SODIUM CHLORIDE 0.9% 1,000 ML IV SCH ×2 (18:48→22:25)
[2024-02-26] MEDS: fentaNYL citrate PF 100 MCG/2 ML VIAL IV PRN (19:21)
[2024-02-26] MEDS: diphenhydrAMINE 50 MG/ML VIAL IV STA (19:24)
[2024-02-26] MEDS: FAMOTIDINE 20MG IV PUSH 20 MG/5 ML SYR IV STA (19:24)
[2024-02-26] MEDS ORDERED: MoRPHine SULFATE 2 MG/ML CARP IV PRN (20:55)
[2024-02-26] MEDS ORDERED: ONDANSETRON INJ 2 MG/ML 2 ML VIAL IV PRN (20:55)
[2024-02-26] MEDS ORDERED: POLYETHYLENE (MIRALAX) 17 GM PACK PO PRN (20:55)
[2024-02-26] MEDS: LACTATED RINGER'S 1,000 ML IV SCH (21:25)
--- NOTE | 2024-02-26 21:32 | Surgery Consultation ---
Date of Consultation February 26, 2024 Assessment & Plan (1) Small bowel obstruction: The patient has been admitted on the hospitalist service. From surgery perspective we recommend the following: Is unclear if the patient is suffering from a partial small bowel obstruction versus an enteritis Recommend keeping the patient n.p.o. for the present time with consideration being given to advancing diet once her abdominal symptomatology improves IV fluids to be employed for hydration Serial labs to be followed As there is a potential for an underlying enteritis stool studies have been sent which are pending these results can be followed for and treated accordingly. Does appear however, that the primary service has initiated Zosyn in the event that this is an enteritis. If the patient's symptomatology fails to improve over the next 24 to 48 hours consideration be given to performing some type of repeat abdominal imaging, but whether or not this will be needed is yet to be determined At the present time the patient is nontoxic-appearing. She is normotensive without tachycardia or fever. Additional recommendations be forthcoming based on her clinical course as it unfolds History of Present Illness Reason for Consultation: Small bowel obstruction Attending Physician: Elliot Monreal MD History of Present Illness This is a 43-year-old female who presented the emergency department secondary to some generalized abdominal pain that has been present for approximately 3 days. Patient notes generalized abdominal pain that appears to be most intense just to the right of her umbilicus. She denies any radiation. She denies any modifying factors. She said that she did have 1 episode of emesis yesterday but has not had any since. She said that she has moved her bowels yesterday but has not moved them since that time. She also notes that she has not been passing much in the way of flatus over the past 24 hours. She denies any fevers, shakes, or chills. She denies any hematemesis, provide blood per rectum or melanotic stools. She notes no close contacts are ill and does not believe she is eating any poorly cooked food. She does note she has had prior abdominal surgeries in the form of a cholecystectomy in the past. She also notes that she was told she had a small bowel obstruction approximately 5 years ago that was treated successfully in a conservative manner. Since arrival to the hospital she has had labs and imaging which I independently reviewed. Patient did have a CT scan abdomen pelvis that showed fluid-filled with some borderline dilatation of some loops of small bowel in the mid abdomen with some wall thickening and interloop edema. Interpreting radiologist felt that this favored nonspecific infectious or inflammatory enteritis. A low-grade small bowel obstruction could not be excluded. There is no evidence of appendicitis or pneumoperitoneum. Labs include a CBC were white blood cell count was 10.9. Hemoglobin, hematocrit, and platelet count were normal. Coagulation studies were normal. Chemistry profile showed sodium was 135 with a normal potassium, BUN, and creatinine. Lactic acid level was nonelevated at 0.9. There is no elevation of patient's LFTs or lipase. A bio fire study was checked and all viruses tested for were noted to be negative. At the time of my interview the patient was resting comfortably in bed. She did not appear to be in any distress Allergies Allergy/AdvReac Type Severity Reaction Status Date / Time morphine AdvReac Abdominal Verified 02/27/24 00:19 Pain Home Medications Medication Instructions Recorded Confirmed Type dextroamphetamine-amphetamine 10 10 mg PO BID 02/26/24 02/26/24 History mg tablet dextroamphetamine-amphetamine ER 1 cap PO BID 02/26/24 02/26/24 History 20 mg 24hr capsule,extend release Patient History Medical History Anxiety Surgical History No pertinent past surgical history Social History Smoking Status: Former smoker Do You Dip or Chew Tobacco: No; Hx Alcohol Use: No Hx Substance Use: No Preferred Language: Mohawk Communication Ability: Effective Hook Up Driver Required: No Beliefs That Will Affect Care: None Current Living Situation: Spouse Feels Safe at Home: Yes Safety Concerns: Feels Safe At This Time Assistive Devices: Glasses Review of Systems Review of Systems: All systems reviewed & are unremarkable except as noted in HPI & below Physical Exam Constitutional: WD/WN, vitals as above Eyes: no conjunctival abnormality ENMT: Ears: no hearing impairment and no external ear abnormality Mouth: no oropharynx abnormality Neck: trachea midline Respiratory: normal respiratory effort; no respiratory distress and no labored breathing Cardiovascular: Rate/Rhythm: regular rate and regular rhythm Vessels: dorsalis pedis pulses present and radial pulses present Gastrointestinal (Abdomen): At the time of my exam the patient's abdomen was soft and nondistended. There is no rebound tenderness or guarding. There is no rigidity. Patient did have pain with palpation just to the right of her umbilicus however. I did not appreciate any hernias. Musculoskeletal: No calf tenderness. Feet are warm and well-perfused Skin: no rashes Neurologic: moves all extremities Psychiatric: A+Ox3, euthymic affect Results & Data Vital Signs (Past 12 Hours) Vital Signs Temp Pulse Pulse Resp BP BP Pulse Ox 02/26/24 20:02 70 12 142/90 H 98 02/26/24 19:38 67 20 162/96 H 96 02/26/24 18:25 74 20 98/72 L 96 02/26/24 18:10 80 02/26/24 15:08 86 18 108/58 L 97 02/26/24 14:23 86 02/26/24 13:43 36.4 C L 97 H 18 147/96 H 98 O2 Del Method 02/26/24 20:02 Room Air 02/26/24 19:38 Room Air 02/26/24 18:25 Room Air 02/26/24 18:10 02/26/24 15:08 Room Air 02/26/24 14:23 02/26/24 13:43 Room Air PG Care Time/CCT Total # of Minutes Spent Total Time Spent with Patient: Total time spent is greater than 50% in coordination of care (as documented) at patient's floor/unit and/or counseling patient: Coding Level of Care Code 28524 IN/OBS CONSULT LVL 5,80M Diagnoses Small bowel obstruction K56.609
[2024-02-26] MEDS: ACETAMINOPHEN 1,000 MG/100 ML VIAL IV PRN (21:53)
[2024-02-26] MEDS: PIPERACILLIN/TAZOBACTAM 4.5 GM/100 ML BAG IV ONE (22:25)
[2024-02-27 00:45] LABS: Appearance Urine Clear (Clear); Bacteria Urine Automated 3+ (None Seen); Bilirubin Urine Negative (Negative); Blood Urine Negative (Negative); Cast Urine Automated 0-2 /lpf (0-2); Color Urine Dark Yellow; Glucose Urine UA Negative (Negative); Ketones Urine Negative (Negative); Leukocyte Esterase Urine Negative (Negative); Nitrite Urine Negative (Negative); Protein Urine Trace (Negative); Specific Gravity Urine 1.043 (1.000-1.030); Urobilinogen Urine Positive (Negative); WBC Urine Automated 0-5 /hpf (0-5); pH Urine 6.5 (4.5-7.5)
[2024-02-27] MEDS: PIPERACILLIN/TAZOBACTAM 4.5 GM/100 ML BAG IV SCH (04:12)
--- NOTE | 2024-02-27 05:27 | Surgery Progress Note ---
Date of Service February 27, 2024 Assessment & Plan (1) Small bowel obstruction: Plan: The patient has been admitted on the hospitalist service. From surgery perspective we recommend the following: The patient may have an element of small bowel obstruction or simply just an enteritis Keep the patient n.p.o. for the present time with consideration being given to advancing diet once her abdominal symptomatology continues to improve Continue IV fluids for hydration until oral intake can be advanced and is reliable Check a.m. labs and available Check a.m. KUB when available Stool studies have been ordered by the primary service due to concern for underlying enteritis. Check these once available. Due to concern for possible enteritis she has been placed on empiric Zosyn and this can continue as directed by the primary service. The patient continues to appear nontoxic and is not hypotensive or tachycardic The patient's bowel function does not open up in the next 24 to 48 hours consideration may be given to performing a contrast study if deemed clinically necessary Additional recommendations be forthcoming based on her clinical course as it unfolds as above. KUB essentially unchanged bowel pattern. would keep NPO for now. no urgent indication for surgical intervention. leukocytosis has resolved will continue to follow along Admission and Anticipated Discharge Date Admission Date: February 26, 2024 Subjective Patient is currently resting comfortably in bed. She notes that since she has been admitted her abdominal pain has improved. She has not had return of bowel function with a BM or flatus but she has not had any nausea or vomiting. Physical Exam Gastrointestinal (Abdomen): Abdomen is soft, nonrigid, and nondistended. There is no rebound tenderness or guarding. There is minimal to no pain with palpation Results & Data Vital Signs (Past 12 Hours) Vital Signs Temp Pulse Pulse Resp BP BP BP 02/26/24 20:45 36.6 C 73 18 126/85 02/26/24 20:02 70 12 142/90 H 02/26/24 19:38 67 20 162/96 H 02/26/24 18:25 74 20 98/72 L 02/26/24 18:10 80 Pulse Ox O2 Del Method 02/26/24 20:45 99 Room Air 02/26/24 20:02 98 Room Air 02/26/24 19:38 96 Room Air 02/26/24 18:25 96 Room Air 02/26/24 18:10 PG Care Time/CCT Total # of Minutes Spent Total Time Spent with Patient: Total time spent is greater than 50% in coordination of care (as documented) at patient's floor/unit and/or counseling patient: Coding Level of Care Code 12054 SUB INP/OBS CARE 07/15MIN Diagnoses Small bowel obstruction K56.609
[2024-02-27 06:15] LABS: Hematocrit (blood only) 36.2 % (37.0-47.0); Hemoglobin 11.9 g/dl (12.0-16.0); Mean Corpuscular Hemoglobin 28.7 pg (25.0-34.0); Mean Corpuscular Hgb Conc 32.9 g/dL (32.0-36.0); Mean Corpuscular Volume 87.2 fL (80.0-100.0); Platelet Count 312 K/uL (130-400); RDW Coefficient of Variation 12.5 % (11.5-14.5); RDW Standard Deviation 39.9 fL (36.4-46.3); Red Blood Count 4.15 M/uL (4.20-5.40); White Blood Count 8.93 K/ul (4.8-10.8)
[2024-02-27 06:37] LABS: BUN Creatinine Ratio 13.6 (10-20); Calcium 8.3 mg/dl (8.6-10.3); Creatinine Clr Calc Pharmacy 120.1 ml/min; Est GFR (African American) 124.5 ml/min; Est GFR (Non-African American) 107.4 ml/min; Magnesium 1.8 mg/dl (1.7-2.4); Potassium 3.6 mmol/L (3.5-5.1)
[2024-02-27 07:43] VITALS: RESP 16
--- NOTE | 2024-02-27 09:37 | XRay Report ---
KUB HISTORY: Acute generalized abdominal pain with small bowel obstruction SBO COMPARISON: CT 02/26/2024 FINDINGS: Air-filled loops of large and small bowel redemonstrated. Small bowel loops measure up to 3 .3 cm, similar to yesterday's study. [id number] fecal retention. Bilateral tubo-ovarian occlusi on devices are present. Degeneration of the pubic symphysis. Cholecystectomy. No renal calculi. No u reteral calculi. No pneumoperitoneum or pneumatosis. No fracture. IMPRESSION: 1. Air-filled loops of large and small bowel with borderline dilation of the small bowel loops, simil ar to yesterday's study. 2. Cholecystectomy. 3. No pneumoperitoneum identified. ACT 112: Negative or not required by law. The above report was generated using voice recognition software. It may contain grammatical, syntax o r spelling errors. Electronically signed by: Luis Carlos Brar M.D. 02/27/2024 9:35 AM
[2024-02-27] MEDS: ACETAMINOPHEN 325 MG TAB PO PRN (10:59)
[2024-02-27] MEDS: PANTOprazole 40 MG in SYRINGE 0 ML IV SCH (11:00)
[2024-02-27] MEDS: D5NSS + 20MEQ KCL 20 MEQ/1,000 ML BAG IV SCH (13:33)
--- NOTE | 2024-02-27 14:32 | Hospitalist Progress Note ---
Date of Service February 27, 2024 Assessment & Plan (1) Abdominal pain: (2) Nausea and vomiting: Plan Diane Orellana is a 43y/o F with PMHx significant for chronic maxillary sinusitis, obesity, GERD with esophagitis, IBS, fibromyalgia, bilateral chronic serous otitis media, JEFF, depression and narcolepsy [on Adderall] who presented to the ED for evaluation of abdominal pain and nausea/vomiting. Abdominal Pain Nausea & Vomiting Multifactorial: Enteritis, ileus versus partial small bowel obstruction History as per HPI. Question resolving SBO vs. possible enteritis. Slight leukocytosis, otherwise lab work unremarkable. RVP negative. UA pending. CTAP revealed findings concerning for infectious/inflammatory enteritis vs. low- grade SBO. Continue IVF. Pain regimen, bowel rest. IV Protonix daily. General surgery consulted. Empiric ABX coverage w/ IV Zosyn. 02/26 Repeat KUB: 1. Air-filled loops of large and small bowel with borderline dilation of the small bowel loops, similar to yesterday's study. 2. Cholecystectomy. 3. No pneumoperitoneum identified. Continue bowel rest, IV fluids Continue empiric IV Zosyn Follow-up stool cultures General Surgery on board Abnormal EKG: EKG w/ rightward axis, ST & T wave abnormalities. Patient denies any chest pain or SOB. Echo pending. Narcolepsy: Continue home Adderall as able. DVT Prophylaxis: SCDs/TEDs for now. Code Status: FULL CODE PCP: NO PCP Disposition:Pending Admission and Anticipated Discharge Date Admission Date: February 27, 2024 Subjective Follow-up for nausea, abdominal pain, etc. Seen resting in bed, comfortable, not in distress States abdominal pain is improving compared to yesterday but still present No nausea so far Positive flatus, no bowel movements No fevers or chills No other new symptoms Review of Systems Review of Systems: all noted and negative except for above Physical Exam Physical Exam: General- oriented x 3, not in distress, speaks in sentences with no effort or accessory muscle use Eyes- anicteric Neck- no JVD Lungs- clear breath sounds bilaterally, no crackles or wheezing Heart- normal rate, regular rhythm; no murmurs Abdomen- normal bowel sounds, nondistended, soft, mild- moderate RUQ tenderness Extremities- no pretibial edema, no calf tenderness Neuro- alert, oriented x 3; no gross focal neurologic deficits Skin- warm & dry Results & Data Results & Data Vital Signs (Past 12 Hours) Vital Signs Temp Pulse Resp BP Pulse Ox O2 Del Method 02/27/24 14:16 36.6 C 73 16 103/68 98 Room Air 02/27/24 07:43 36.8 C 74 16 97/63 L 97 Room Air all noted and reviewed including below (1) Abdominal pain Abdominal location: unspecified location Qualified Code(s): R10.9 - Unspecified abdominal pain (2) Nausea and vomiting Vomiting type: unspecified Qualified Code(s): R11.2 - Nausea with vomiting, unspecified
--- NOTE | 2024-02-27 17:34 | Hospitalist Progress Note ---
Date of Service February 27, 2024 Assessment & Plan (1) Abdominal pain: (2) Nausea and vomiting: Plan Dinae Orellana is a 43y/o F with PMHx significant for chronic maxillary sinusitis, obesity, GERD with esophagitis, IBS, fibromyalgia, bilateral chronic serous otitis media, JEFF, depression and narcolepsy [on Adderall] who presented to the ED for evaluation of abdominal pain and nausea/vomiting. Abdominal Pain Nausea & Vomiting Multifactorial: Enteritis, ileus versus partial small bowel obstruction History as per HPI. Question resolving SBO vs. possible enteritis. Slight leukocytosis, otherwise lab work unremarkable. RVP negative. UA pending. CTAP revealed findings concerning for infectious/inflammatory enteritis vs. low- grade SBO. Continue IVF. Pain regimen, bowel rest. IV Protonix daily. General surgery consulted. Empiric ABX coverage w/ IV Zosyn. 02/26 Repeat KUB: 1. Air-filled loops of large and small bowel with borderline dilation of the small bowel loops, similar to yesterday's study. 2. Cholecystectomy. 3. No pneumoperitoneum identified. Continue bowel rest, IV fluids Continue empiric IV Zosyn Follow-up stool cultures General Surgery on board Abnormal EKG: EKG w/ rightward axis, ST & T wave abnormalities. Patient denies any chest pain or SOB. Echo pending. Narcolepsy: Continue home Adderall as able. DVT Prophylaxis: SCDs/TEDs for now. Code Status: FULL CODE PCP: NO PCP Disposition:Pending Admission and Anticipated Discharge Date Admission Date: February 27, 2024 Results & Data Results & Data Vital Signs (Past 12 Hours) Vital Signs Temp Pulse Resp BP Pulse Ox O2 Del Method 02/27/24 14:16 36.6 C 73 16 103/68 98 Room Air 02/27/24 07:43 36.8 C 74 16 97/63 L 97 Room Air (1) Abdominal pain Abdominal location: unspecified location Qualified Code(s): R10.9 - Unspecified abdominal pain (2) Nausea and vomiting Vomiting type: unspecified Qualified Code(s): R11.2 - Nausea with vomiting, unspecified
[2024-02-27] MEDS: MELATONIN 3 MG TAB PO PRN (21:26)
--- NOTE | 2024-02-27 21:52 | Electrocardiogram Report ---
Test Reason : Blood Pressure : */* mmHG Vent. Rate : 86 BPM Atrial Rate : 86 BPM P-R Int : 130 ms QRS Dur : 82 ms QT Int : 350 ms P-R-T Axes : -8 94 -23 degrees QTcB Int : 418 ms Normal sinus rhythm Rightward axis Abnormal ECG When compared with ECG of 03-Aug-2020 21:57, Premature ventricular complexes are no longer Present Questionable change in QRS axis T wave inversion more evident in Inferolateral leads Confirmed by Rad Santoro ([id number]) on 02/27/2024 9:51:57 PM Referred By: REFERRED SELF Confirmed By: Rad Santoro
--- NOTE | 2024-02-27 21:53 | Electrocardiogram Report ---
Test Reason : Blood Pressure : */* mmHG Vent. Rate : 70 BPM Atrial Rate : 70 BPM P-R Int : 142 ms QRS Dur : 86 ms QT Int : 406 ms P-R-T Axes : -22 18 25 degrees QTcB Int : 438 ms Poor data quality, interpretation may be adversely affected Normal sinus rhythm Nonspecific ST abnormality Abnormal ECG When compared with ECG of 26-Feb-2024 14:15, Questionable change in QRS axis T wave inversion no longer evident in Inferolateral leads Confirmed by Rad Santoro ([id number]) on 02/27/2024 9:52:47 PM Referred By: REFERRED SELF Confirmed By: Rad Santoro
[2024-02-28 06:22] LABS: Albumin Globulin Ratio 1.5 (0.9-2); Albumin Level 3.7 gm/dl (3.4-5.0); BUN Creatinine Ratio 8.5 (10-20); Bilirubin,Total 0.4 mg/dl (0.2-1.0); Calcium 8.6 mg/dl (8.6-10.3); Creatinine Clr Calc Pharmacy 111.7 ml/min; Est GFR (African American) 120.1 ml/min; Est GFR (Non-African American) 103.6 ml/min; Globulin 2.5 gm/dl (2.5-4.0); Magnesium 1.8 mg/dl (1.7-2.4); Potassium 3.7 mmol/L (3.5-5.1); Total Protein 6.2 gm/dl (6.0-8.3)
--- NOTE | 2024-02-28 11:54 | Hospitalist Progress Note ---
Date of Service February 28, 2024 Assessment & Plan (1) Abdominal pain: (2) Nausea and vomiting: Plan Diane Orellana is a 43y/o F with PMHx significant for chronic maxillary sinusitis, obesity, GERD with esophagitis, IBS, fibromyalgia, bilateral chronic serous otitis media, JEFF, depression and narcolepsy [on Adderall] who presented to the ED for evaluation of abdominal pain and nausea/vomiting. Abdominal Pain Nausea & Vomiting Multifactorial: Enteritis, ileus versus partial small bowel obstruction History as per HPI. Question resolving SBO vs. possible enteritis. Labs unremarkable, initial elevated wbc 10.97k, now resolved, hgb down to 11.9 CTAP revealed findings concerning for infectious/inflammatory enteritis vs. low- grade SBO. Continue IVF. Pain regimen, bowel rest. IV Protonix daily. General surgery consulted. Empiric ABX coverage w/ IV Zosyn. 02/26 Repeat KUB:1. Air-filled loops of large and small bowel with borderline dilation of the small bowel loops, similar to yesterday's study. Still no bowel movement, will await further surgical recs ? Consider bowel regimen Transaminitis normal on presentation. today ALT 123, AST 64 ? from pip/tazo, will switch to cipro/flagyl and monitor LFTS, no other clear source, check hep panel in a.m., t bili normal Abnormal EKG: EKG w/ rightward axis, ST & T wave abnormalities. Patient denies any chest pain or SOB. Echo unremarkable and reviewed with patient Narcolepsy: Continue home Adderall as able. DVT Prophylaxis: SCDs/TEDs for now. Code Status: FULL CODE PCP: NO PCP Disposition:not yet medically stable for discharge A total of 48 min was spent coordinating, documenting, and providing care for this patient excluding time spent in the performance of separately billed services. This included personally viewing all current laboratories and imaging studies, medication reconciliation, outpatient chart review, and discussion with specialists. Admission and Anticipated Discharge Date Admission Date: February 27, 2024 Supervising Physician Co-Signing Physician Notes Attending addendum: The patient was seen and examined in medical floor She has been complaining of nausea vomiting and has been passing gas but bowel is not moved yet Tolerating liquid diet Denies any abdominal distention or increasing pain On examination Lying in bed with some distress due to abdominal discomfort Hemodynamically stable Bowel sound is sluggish and other system examination unremarkable Her labs, imaging studies and medications reviewed Abdominal pain with nausea vomiting likely secondary to ileus Agree with assessment and plan as outlined above by Julia Travis PA-C and take the full responsibility of the care Total time spent in documentation, examination and reviewing was [address] Johnny Samuel Pt seen and examined in room 310. F/U possible bowel obstruction. She states she has still not moved her bowels. She feels bloated. She denies passing flatus today, but she did pass yesterday. She wishes she could just move her bowels. She is still having some RUQ/Epigastric pain. She denies f/c/s, chest pain, sob, n/v/d. She has not yet been seen by surgery today. She is tolerating clears. Review of Systems Review of Systems: All systems reviewed & are unremarkable except as noted in HPI & below Physical Exam Physical Exam: Gen: WD/WN, NAD, A&O x3 HEENT: Normocephalic, atraumatic, conjunctivae moist, sclerae anicteric, mucous membranes moist. Lung: Clear to Auscultation bilaterally, no wheezes/rales/rhonchi Heart: Regular rate, regular rhythm, no murmurs, rubs, or gallops Abdomen: Soft, TTP RUQ and periumbilical area, no rebound, guarding, rigidity, ND +BS x 4 Extremities: No edema Skin: Warm, no rash, negative turgor. Results & Data Results & Data Vital Signs (Past 12 Hours) Vital Signs Temp Pulse Resp BP Pulse Ox O2 Del Method 02/28/24 07:26 36.8 C 71 16 125/78 98 Room Air Laboratory Results I have independently reviewed and interpreted patient's CBC, CMP Medications Administered Current Inpatient Medications Acetaminophen (Acetaminophen 325 Mg Tab) 650 mg PO Q4H PRN PRN Reason: Pain or Fever Stop: 03/27/24 20:54 Last Admin: 02/27/24 21:20 Dose: 650 mg Pantoprazole Sodium 40 mg/ (Syringe) 10 mls @ 5 mls/min IV DAILY@1100 DANIEL Stop: 03/28/24 10:59 Last Admin: 02/28/24 10:58 Dose: 5 mls/min Piperacillin Sod/Tazobactam Sod (Zosyn) 4.5 gm in 100 mls @ 25 mls/hr IV Q8H DANIEL Stop: 02/29/24 03:59 Last Infusion: 02/28/24 08:22 Dose: Infused Acetaminophen (Ofirmev) 1,000 mg in 100 mls @ 400 mls/hr IV Q8H PRN PRN Reason: Pain or Fever Stop: 02/29/24 21:06 Last Infusion: 02/26/24 22:08 Dose: Infused Potassium Chloride/Dextrose/Sod Cl (D5nss + 20meq Kcl) 20 meq in 1,000 mls @ 80 mls/hr IV .[id number] DANIEL Stop: 03/28/24 09:59 Last Admin: 02/28/24 01:56 Dose: 80 mls/hr Melatonin (Melatonin 3 Mg Tab) 3 mg PO HS PRN PRN Reason: Sleep Stop: 03/28/24 19:38 Last Admin: 02/27/24 21:26 Dose: 3 mg Ondansetron HCl (Ondansetron Inj 2 Mg/Ml 2 Ml Vial) 4 mg IV Q6H PRN PRN Reason: Nausea Stop: 03/27/24 20:54 Polyethylene Glycol (Polyethylene (Miralax) 17 Gm Pack) 17 gm PO DAILY PRN PRN Reason: Constipation Stop: 03/27/24 20:54 (1) Abdominal pain Abdominal location: unspecified location Qualified Code(s): R10.9 - Unspecified abdominal pain (2) Nausea and vomiting Vomiting type: unspecified Qualified Code(s): R11.2 - Nausea with vomiting, unspecified
[2024-02-28] MEDS: CIPROFLOXACIN / D5W 400 MG/200 ML BAG IV SCH (13:12)
[2024-02-28] MEDS: metroNIDAZOLE 500 MG/100 ML BAG IV SCH (15:03)
[2024-02-28 15:56] LABS: Adenovirus F 40/41 PCR Not Detected (NotDetected); Astrovirus PCR Not Detected (NotDetected); Campylobacter PCR Not Detected (NotDetected); Cryptosporidium PCR Not Detected (NotDetected); Cyclospora cayetanensis PCR Not Detected (NotDetected); Entamoeba histolytica PCR Not Detected (NotDetected); Enteroaggregative E.coli(EAEC) Not Detected (NotDetected); Enterotoxigenic E.coli (ETEC) Not Detected (NotDetected); Giardia lamblia PCR Not Detected (NotDetected); Norovirus GI/GII PCR Not Detected (NotDetected); Plesiomonas shigelloides PCR Not Detected (NotDetected); Rotavirus A PCR Not Detected (NotDetected); Salmonella PCR Not Detected (NotDetected); Sapovirus PCR Not Detected (NotDetected); Shiga-like Toxin E.coli (STEC) Not Detected (NotDetected); Shigella/Enteroinvasive E.coli Not Detected (NotDetected); Vibrio cholerae PCR Not Detected (NotDetected); Vibrio species PCR Not Detected (NotDetected); Yersinia enterocolitica PCR Not Detected (NotDetected)
[2024-02-28 16:20] LABS: Enteropathogenic E.coli (EPEC) DETECTED (NotDetected)
[2024-02-28] MEDS: diphenhydrAMINE Capsule 25 MG CAP PO PRN (21:26)
[2024-02-29 07:58] LABS: Basophils # (auto) 0.03 K/uL (0.00-0.20); Basophils % (auto) 0.5 %; Eosinophils # (auto) 0.21 K/uL (0.00-0.50); Eosinophils % (auto) 3.2 %; Hematocrit (blood only) 34.5 % (37.0-47.0); Hemoglobin 11.5 g/dl (12.0-16.0); Immature Granulocytes # (auto) 0.02 K/uL (0.01-0.20); Immature Granulocytes % (auto) 0.3 %; Lymphocytes # (auto) 2.44 K/uL (1.20-3.40); Lymphocytes % (auto) 37.5 %; Mean Corpuscular Hemoglobin 28.8 pg (25.0-34.0); Mean Corpuscular Hgb Conc 33.3 g/dL (32.0-36.0); Mean Corpuscular Volume 86.3 fL (80.0-100.0); Monocytes # (auto) 0.64 K/uL (0.11-0.59); Monocytes % (auto) 9.8 %; Neutrophils # (auto) 3.16 K/uL (1.40-6.50); Neutrophils % (auto) 48.7 %; Platelet Count 309 K/uL (130-400); RDW Coefficient of Variation 12.5 % (11.5-14.5); RDW Standard Deviation 39.2 fL (36.4-46.3)
--- NOTE | 2024-02-29 08:09 | XRay Report ---
XR KUB/Abdomen 1 view CLINICAL HISTORY: f/u ? SBO TECHNIQUE: 1 view of the abdomen was obtained. Comparison: Comparison is made to abdomen radiograph 02/27/2024 FINDINGS: Lung bases are unremarkable. The osseous structures are grossly unremarkable. Borderline prominence o f small bowel loops without hailee dilation. A moderate amount of stool is noted within the large michael l. Tubo-ovarian occlusion devices are unchanged. IMPRESSION: No hailee small bowel dilation with redemonstration of borderline prominent small bowel loops, unchang ed from prior. ACT 112: Negative or not required by law. Electronically signed by: Toan Gould M.D. 02/29/2024 8:08 AM
[2024-02-29 08:10] LABS: Albumin Globulin Ratio 1.4 (0.9-2); Albumin Level 3.9 gm/dl (3.4-5.0); BUN Creatinine Ratio 7.5 (10-20); Bilirubin,Total 0.2 mg/dl (0.2-1.0); Calcium 8.9 mg/dl (8.6-10.3); Creatinine Clr Calc Pharmacy 118.3 ml/min; Est GFR (African American) 123.9 ml/min; Est GFR (Non-African American) 106.9 ml/min; Globulin 2.8 gm/dl (2.5-4.0); Magnesium 1.8 mg/dl (1.7-2.4); Potassium 3.8 mmol/L (3.5-5.1); Total Protein 6.7 gm/dl (6.0-8.3)
[2024-02-29] MEDS: FAMOTIDINE 20MG IV PUSH 20 MG/5 ML SYR IV STA (09:19)
--- NOTE | 2024-02-29 10:07 | Hospitalist Progress Note ---
Date of Service February 29, 2024 Assessment & Plan (1) Abdominal pain: (2) Nausea and vomiting: Plan Diane Orellana is a 43y/o F with PMHx significant for chronic maxillary sinusitis, obesity, GERD with esophagitis, IBS, fibromyalgia, bilateral chronic serous otitis media, JEFF, depression and narcolepsy [on Adderall] who presented to the ED for evaluation of abdominal pain and nausea/vomiting. Abdominal Pain Nausea & Vomiting Multifactorial: Enteritis, ileus versus partial small bowel obstruction History as per HPI. Question resolving SBO vs. possible enteritis. Labs unremarkable, initial elevated wbc 10.97k, now resolved, hgb down to 11.9 CTAP revealed findings concerning for infectious/inflammatory enteritis vs. low- grade SBO. 02/26 Repeat KUB:1. Air-filled loops of large and small bowel with borderline dilation of the small bowel loops, similar to yesterday's study. 02/28: KUB Unchanged Pt initially with no bowel movement, except yesterday very small; today 0300 multiple episodes of diarrhea (3), nonbloody Stool studies + EPEC; she is concerned for cdiff despite negative testing today, will repeat cdiff given antibiotic use continue IV Cipro for now and add lactobacillus reached out to surgery colleagues for re-eval today, clinical picture more suspicious for SB Enteritis continue IVF given diarrhea, continue to advance diet as tolerated (will take of full liquid due to dairy component) Transaminitis normal on presentation. 02/27 ALT 123, AST 64 ? from pip/tazo, will switch to cipro; no clear source, LFTS trending down today, likely drug induced vs in setting of diarrheal illness, acute hep panel pending Abnormal EKG: EKG w/ rightward axis, ST & T wave abnormalities. Patient denies any chest pain or SOB. Echo unremarkable and reviewed with patient Narcolepsy: Continue home Adderall as able. DVT Prophylaxis: SCDs/TEDs for now. Code Status: FULL CODE PCP: NO PCP Disposition:not yet medically stable for discharge; will re evaluate this a.m., repeat cbc, cmp in a.m. A total of 45 min was spent coordinating, documenting, and providing care for this patient excluding time spent in the performance of separately billed services. This included personally viewing all current laboratories and imaging studies, medication reconciliation, outpatient chart review, and discussion with specialists. Admission and Anticipated Discharge Date Admission Date: February 27, 2024 Supervising Physician Co-Signing Physician Notes Attending addendum: The patient was seen and examined in medical floor She has been better with minimal discomfort in the abdomen and has been having diarrhea Noted to have E Coli she infection in the interest C. difficile colitis has been negative On examination Lying in bed with minimal discomfort in abdomen Hemodynamically stable Examination of the abdomensoft, mildly tender without any guarding and rigidity and normal bowel sound Her admission labs, medications and imaging studies reviewed E. coli enteritis with abdominal discomfort and diarrhea She has been tolerating diet and will advance as tolerated further Agree with assessment plan as outlined above. Elisa New PA-C and take the full responsibility of the patient care Total time spent in documentation and examination took [address] Johnny Samuel Pt seen and examined in room 310. F/U EPEC enteritis She started with diarrhea at 0300. She is upset no one told her she had e. coli in her stool yesterday. She feels her diarrhea is different then the bowel movements she was having yesterday. She has experience working in a [employer] and is concerned for cdiff. Her stool for cdiff was negative yesterday, but given antibiotics will order. She denies any abd pain, but still feels nausea and, "uneasy." She denies f/c/s, chest pain, sob, melena or hematochezia. She reports being at a picnic last week and ate a hamburger. She otherwise has no one sick contacts. Review of Systems Review of Systems: All systems reviewed & are unremarkable except as noted in HPI & below Physical Exam Physical Exam: Gen: WD/WN, NAD, A&O x3 HEENT: Normocephalic, atraumatic, conjunctivae moist, sclerae anicteric, mucous membranes moist. Lung: Clear to Auscultation bilaterally, no wheezes/rales/rhonchi Heart: Regular rate, regular rhythm, no murmurs, rubs, or gallops Abdomen: Soft, TTP RUQ and periumbilical area, no rebound, guarding, rigidity, ND +BS x 4 Extremities: No edema Skin: Warm, no rash, negative turgor. Results & Data Results & Data Vital Signs (Past 12 Hours) Vital Signs Temp Pulse Resp BP Pulse Ox O2 Del Method 02/29/24 09:29 36.7 C 77 16 143/83 H 98 Room Air Medications Administered Current Inpatient Medications Acetaminophen (Acetaminophen 325 Mg Tab) 650 mg PO Q4H PRN PRN Reason: Pain or Fever Stop: 03/27/24 20:54 Last Admin: 02/28/24 21:25 Dose: 650 mg Diphenhydramine HCl (Diphenhydramine Capsule 25 Mg Cap) 25 mg PO HS PRN PRN Reason: Insomnia Stop: 03/29/24 21:08 Last Admin: 02/28/24 21:26 Dose: 25 mg Pantoprazole Sodium 40 mg/ (Syringe) 10 mls @ 5 mls/min IV DAILY@1100 [facility] Stop: 03/28/24 10:59 Last Admin: 02/29/24 10:06 Dose: 5 mls/min Acetaminophen (Ofirmev) 1,000 mg in 100 mls @ 400 mls/hr IV Q8H PRN PRN Reason: Pain or Fever Stop: 02/29/24 21:06 Last Infusion: 02/26/24 22:08 Dose: Infused Potassium Chloride/Dextrose/Sod Cl (D5nss + 20meq Kcl) 20 meq in 1,000 mls @ 80 mls/hr IV .[id number] [facility] Stop: 03/28/24 09:59 Last Admin: 02/29/24 00:58 Dose: 80 mls/hr Ciprofloxacin (Cipro / D5w) 400 mg in 200 mls @ 100 mls/hr IV Q12H DANIEL; Protocol Stop: 03/09/24 12:59 Last Infusion: 02/29/24 03:06 Dose: Infused Lactobacillus Acidophilus (Advanced Probiotic 625 Mg Capsule) 1,250 mg PO DAILY [facility] Stop: 03/30/24 08:34 Melatonin (Melatonin 3 Mg Tab) 3 mg PO HS PRN PRN Reason: Sleep Stop: 03/28/24 19:38 Last Admin: 02/27/24 21:26 Dose: 3 mg Ondansetron HCl (Ondansetron Inj 2 Mg/Ml 2 Ml Vial) 4 mg IV Q6H PRN PRN Reason: Nausea Stop: 03/27/24 20:54 Polyethylene Glycol (Polyethylene (Miralax) 17 Gm Pack) 17 gm PO DAILY PRN PRN Reason: Constipation Stop: 03/27/24 20:54 (1) Abdominal pain Abdominal location: unspecified location Qualified Code(s): R10.9 - Unspecified abdominal pain (2) Nausea and vomiting Vomiting type: unspecified Qualified Code(s): R11.2 - Nausea with vomiting, unspecified
--- NOTE | 2024-02-29 10:22 | Surgery Progress Note ---
Date of Service February 29, 2024 Assessment & Plan (1) E coli enteritis: Plan: No signs of obstruction Advance diet as tolerated Surgery will sign off Admission and Anticipated Discharge Date Admission Date: February 27, 2024 Subjective Pt seen and examined. Still with some abdominal pain. Having BM's. No N/V. Review of Systems Constitutional: no fever and no chills Eyes: no blind spots and no dry eyes Respiratory: no cough and no dyspnea Gastrointestinal: + abdominal pain; no nausea and no vomit ing Genitourinary: no dysuria and no urinary hesitancy Integumentary: no skin ulcer and no erythema Psychiatric: no behavioral changes and no depression Physical Exam Constitutional: WD/WN, vitals as above Eyes: PERRL, conjunctivae normal, anicteric sclerae Respiratory: normal respiratory effort, lungs clear to auscultation Cardiovascular: RRR, no murmur, no edema Gastrointestinal (Abdomen): normal bowel sounds, soft, nontender, no hepatosplenomegaly Skin: no rashes, warm and dry Psychiatric: A+Ox3, euthymic affect Results & Data Vital Signs (Past 12 Hours) Vital Signs Temp Pulse Resp BP Pulse Ox O2 Del Method 02/29/24 09:29 36.7 C 77 16 143/83 H 98 Room Air PG Care Time/CCT Total # of Minutes Spent Total Time Spent with Patient: Total time spent is greater than 50% in coordination of care (as documented) at patient's floor/unit and/or counseling patient: Coding Level of Care Code 57642 SUB INP/OBS CARE 25MIN Diagnoses E coli enteritis A04.4
[2024-02-29] MEDS: ADVANCED PROBIOTIC 625 MG CAPSULE PO SCH (11:59)
[2024-02-29] MEDS ORDERED: LOPERAMIDE HCL 2 MG CAP PO PRN (12:40)
[2024-03-01 07:25] VITALS: BP 120/77; PULSE 68; TEMP 97.7; O2SAT 98
[2024-03-01 08:51] LABS: Basophils # (auto) 0.04 K/uL (0.00-0.20); Basophils % (auto) 0.6 %; Eosinophils # (auto) 0.24 K/uL (0.00-0.50); Eosinophils % (auto) 3.3 %; Hematocrit (blood only) 36.8 % (37.0-47.0); Hemoglobin 12.2 g/dl (12.0-16.0); Immature Granulocytes # (auto) 0.01 K/uL (0.01-0.20); Immature Granulocytes % (auto) 0.1 %; Lymphocytes # (auto) 2.37 K/uL (1.20-3.40); Lymphocytes % (auto) 33.1 %; Mean Corpuscular Hemoglobin 28.5 pg (25.0-34.0); Mean Corpuscular Hgb Conc 33.2 g/dL (32.0-36.0); Mean Platelet Volume 10.1 fL (9.4-12.4); Monocytes # (auto) 0.62 K/uL (0.11-0.59); Monocytes % (auto) 8.6 %; Neutrophils # (auto) 3.89 K/uL (1.40-6.50); Neutrophils % (auto) 54.3 %; Platelet Count 319 K/uL (130-400); RDW Coefficient of Variation 12.6 % (11.5-14.5); RDW Standard Deviation 39.2 fL (36.4-46.3); Red Blood Count 4.28 M/uL (4.20-5.40); White Blood Count 7.17 K/ul (4.8-10.8)
[2024-03-01 09:04] LABS: Albumin Globulin Ratio 1.4 (0.9-2); Albumin Level 4.2 gm/dl (3.4-5.0); BUN Creatinine Ratio 11.9 (10-20); Bilirubin,Total 0.2 mg/dl (0.2-1.0); Calcium 9.3 mg/dl (8.6-10.3); Creatinine Clr Calc Pharmacy 118.3 ml/min; Est GFR (African American) 123.9 ml/min; Est GFR (Non-African American) 106.9 ml/min; Globulin 2.9 gm/dl (2.5-4.0); Magnesium 1.8 mg/dl (1.7-2.4); Potassium 3.8 mmol/L (3.5-5.1); Total Protein 7.1 gm/dl (6.0-8.3)
--- NOTE | 2024-03-01 09:40 | Discharge Summary ---
Discharge Summary Date of Service March 01, 2024 Principal Dx & Hospital Course #1 = Principal Diagnosis (1) E coli enteritis: (2) Abdominal pain: (3) Nausea and vomiting: Plan Diane Orellana is a 43y/o F with PMHx significant for chronic maxillary sinusitis, obesity, GERD with esophagitis, IBS, fibromyalgia, bilateral chronic serous otitis media, JEFF, depression and narcolepsy [on Adderall] who presented to the ED for evaluation of abdominal pain and nausea/vomiting. Initial imaging studies Revealed fluid-filled borderline dilated loops of small bowel within the mid abdomen, several loops demonstrating mild wall thickening with interloop edema favoring a nonspecific infectious or inflammatory enteritis with ileus. Low-grade small bowel obstruction could appear similar. Patient does carry a prior history of small bowel obstruction and therefore general surgery was consulted. She was placed on bowel rest, IV fluids and IV antibiotics with Zosyn. Her symptoms gradually improved. She eventually did develop diarrhea and stool cultures were positive for E. coli, EPEC. Her antibiotics were transitioned to IV Cipro and she completed course. Her symptoms were treated supportively. She did have mild elevation of her LFTs which had trended down throughout admission. This is likely in setting of diarrheal illness. On day of discharge she was tolerating a regular diet and drinking fluids. Her diarrhea has subsided. She is not being discharged on any further antibiotic therapy. She was educated on the course of her E. coli enteritis and what to expect once discharged home. She could expect symptoms to last from 10 days to 2 weeks. She is encouraged to gradually increase diet and activity as tolerated. Notes For Next Care Provider E. Coli Enteritis Medication Changes From Visit None Admission HPI Per Admitting Provider Diane Orellana is a 43y/o F with PMHx significant for chronic maxillary sinusitis, obesity, GERD with esophagitis, IBS, fibromyalgia, bilateral chronic serous otitis media, JEFF, depression and narcolepsy [on Adderall] who presented to the ED for evaluation of abdominal pain. History obtained from patient, at bedside and associated chart review. Patient seen at bedside with Dr. Monreal. Patient thought maybe she was having a SBO. Previous SBO around 5 years ago. Pain mostly in the RUQ and epigastric regions. Was previously a slow, steady pain but has been progressively getting worse since . Last BM yesterday morning - was very small and soft. No blood in her stool that she noticed. Had an episode of vomiting last night - "threw up everything she ate" per her . Some ongoing nausea. No fevers or chills. Denies any dizziness. No new medications. No smoking or alcohol use. Has been on Adderall for about 3 years. No recent travel or known sick contacts. Admission Exam Per Admitting Provider Physical Exam: Vitals signs as noted above General Appearance: Obese, no apparent distress Head: normocephalic, Atraumatic Eyes: normal inspection, EOMI Neck: supple, Trachea midline Respiratory/Chest: Normal breath sounds, CTA, No accessory muscle use Cardiovascular: S1, S2, No murmur Abdomen/GI:Soft, tender predominantly epigastric, right upper quadrant, Bowel sounds decreased Extremities/Musculoskeletal:normal inspection, no edema Neurologic/Psych:AAOX3, grossly no focal neurological deficits Skin: normal color, warm Discharge Exam Gen: WD/WN, NAD, A&O x3 HEENT: Normocephalic, atraumatic, conjunctivae moist, sclerae anicteric, mucous membranes moist. Lung: Clear to Auscultation bilaterally, no wheezes/rales/rhonchi Heart: Regular rate, regular rhythm, no murmurs, rubs, or gallops Abdomen: Soft, TTP RUQ and periumbilical area, no rebound, guarding, rigidity, ND +BS x 4 Extremities: No edema Skin: Warm, no rash, negative turgor. Updated Medication List Medication Instructions Recorded Confirmed Type dextroamphetamine-amphetamine 10 10 mg PO BID 02/26/24 02/26/24 History mg tablet dextroamphetamine-amphetamine ER 1 cap PO BID 02/26/24 02/26/24 History 20 mg 24hr capsule,extend release Hospital Stay Data Consultations 02/26/24 18:56 ED Decision to Admit Stat 02/26/24 20:55 Consult General Surgery Routine Diagnostic Imagining Performed 03/01/24 02/29/24 Range/Units 07:49 10:10 WBC 7.17 (4.8-10.8) K/ul RBC 4.28 (4.20-5.40) M/uL Hgb 12.2 (12.0-16.0) g/dl Hct 36.8 L (37.0-47.0) % MCV 86.0 (80.0-100.0) fL MCH 28.5 (25.0-34.0) pg MCHC 33.2 (32.0-36.0) g/dL RDW Std Deviation 39.2 (36.4-46.3) fL RDW Coeff of Ronald 12.6 (11.5-14.5) % Plt Count 319 (130-400) K/uL MPV 10.1 (9.4-12.4) fL Immature Gran % (Auto) 0.1 % Neut % (Auto) 54.3 % Lymph % (Auto) 33.1 % Mckinley % (Auto) 8.6 % Eos % (Auto) 3.3 % Baso % (Auto) 0.6 % Neut # (Auto) 3.89 (1.40-6.50) K/uL Lymph # (Auto) 2.37 (1.20-3.40) K/uL Mckinley # (Auto) 0.62 H (0.11-0.59) K/uL Eos # (Auto) 0.24 (0.00-0.50) K/uL Baso # (Auto) 0.04 (0.00-0.20) K/uL Immature Gran # (Auto) 0.01 (0.01-0.20) K/uL Sodium 138 (136-145) mmol/L Potassium 3.8 (3.5-5.1) mmol/L Chloride 105 (98-107) mmol/L Carbon Dioxide 25 (21-32) mmol/L Anion Gap 8 (3-11) BUN 8 (6-23) mg/dl Creatinine 0.67 (0.6-1.2) mg/dl Est Cr Clr Drug Dosing 118.3 ml/min Est GFR ( Amer) 123.9 ml/min Est GFR (Non-Af Amer) 106.9 ml/min BUN/Creatinine Ratio 11.9 (10-20) Glucose 93 (70-99(Fasting)) mg/dl Calcium 9.3 (8.6-10.3) mg/dl Magnesium 1.8 (1.7-2.4) mg/dl Total Bilirubin 0.2 (0.2-1.0) mg/dl AST 20 (13-39) U/L ALT 67 H (7-52) U/L Alkaline Phosphatase 64 (34-104) U/L Total Protein 7.1 (6.0-8.3) gm/dl Albumin 4.2 (3.4-5.0) gm/dl Globulin 2.9 (2.5-4.0) gm/dl Albumin/Globulin Ratio 1.4 (0.9-2) Stl C. diff Tox B Gene Negative Cdiff Gene (Neg) Abdomen/Pelvis CT 02/26/24 15:[address] WITH IV CONTRAST CT DOSE: 1437.29 mGy.cm HISTORY: Acute right-sided abdominal pain right abd pain, hx [place], +n/v TECHNIQUE: Multiaxial CT images of the abdomen and pelvis were performed following the IV administration of 92 cc of Optiray, A dose lowering technique was utilized adhering to the principles of ALARA. COMPARISON STUDY: None. FINDINGS: Clear lung bases. No free air. Unremarkable spleen, pancreas and adrenal glands. Cholecystectomy is likely postsurgical biliary ductal dilation. Unremarkable liver. Patency of the hepatic and portal veins. Unremarkable kidneys and urinary bladder. Bilateral tubo-ovarian occlusion devices, both of which extend into the isthmic portions of the fallopian tubes/uterus. Small amount of free pelvic fluid. Involuting left ovarian follicle, 1.9 cm. Aorta and IVC are unremarkable. Small hiatal hernia. Mild colonic diverticulosis. Normal appendix. Fluid-filled loops of small bowel measure up to 2.9 cm, several which demonstrate circumferential wall thickening with trace interloop edema. No discrete transition point. Lumbar levoscoliosis. No acute fracture. IMPRESSION: 1. Fluid-filled borderline dilated loops of small bowel within the midabdomen, several loops demonstrating mild wall thickening with interloop edema. Findings favor a nonspecific infectious or inflammatory enteritis with ileus. A low grade small bowel obstruction however could appear similarly. Close follow-up is recommended. 2. No pneumoperitoneum. 3. Normal appendix. 4. Cholecystectomy. 5. Involuting left ovarian follicle. ACT 112: Negative or not required by law. The above report was generated using voice recognition software. It may contain grammatical, syntax or spelling errors. Electronically signed by: Luis Carlos Brar M.D. 02/26/2024 4:18 PM KUB X-Ray 02/27/24 07:00 KUB HISTORY: Acute generalized abdominal pain with small bowel obstruction SBO COMPARISON: CT 02/26/2024 FINDINGS: Air-filled loops of large and small bowel redemonstrated. Small bowel loops measure up to 3.3 cm, similar to yesterday's study. [id number] fecal retention. Bilateral tubo-ovarian occlusion devices are present. Degeneration of the pubic symphysis. Cholecystectomy. No renal calculi. No ureteral calculi. No pneumoperitoneum or pneumatosis. No fracture. IMPRESSION: 1. Air-filled loops of large and small bowel with borderline dilation of the small bowel loops, similar to yesterday's study. 2. Cholecystectomy. 3. No pneumoperitoneum identified. ACT 112: Negative or not required by law. The above report was generated using voice recognition software. It may contain grammatical, syntax or spelling errors. Electronically signed by: Luis Carlos Brar M.D. 02/27/2024 9:35 AM KUB X-Ray 02/29/24 07:26 XR KUB/Abdomen 1 view CLINICAL HISTORY: f/u ? SBO TECHNIQUE: 1 view of the abdomen was obtained. Comparison: Comparison is made to abdomen radiograph 02/27/2024 FINDINGS: Lung bases are unremarkable. The osseous structures are grossly unremarkable. Borderline prominence of small bowel loops without hailee dilation. A moderate amount of stool is noted within the large bowel. Tubo-ovarian occlusion devices are unchanged. IMPRESSION: No hailee small bowel dilation with redemonstration of borderline prominent small bowel loops, unchanged from prior. ACT 112: Negative or not required by law. Electronically signed by: Toan Gould M.D. 02/29/2024 8:08 AM Pending Results Patient Have Any Pending Studies at Discharge: No Discharge Instructions Given to Patient (Per Discharging Provider) MEDICATION CHANGES: Continue all medications as prescribed. You may take over the counter Imodium, 2mg, every 4 hours as needed if diarrhea persists. SUMMARY OF TEST RESULTS: You were admitted to hospital due to abdominal pain. You were found to have infection in your stool known as e. coli. This resulted in inflammation of your small bowel. Treatment for this is supportive care. You also received treatment with IV antibiotics, Ciprofloxacin. You had testing for C-diff and this was negative. Your diet was gradually advanced. PENDING TEST RESULTS: None RECOMMENDATIONS FOR FOLLOW-UP: Please follow up with your primary care provider upon discharge. Gradually increase diet and activity as tolerated. Try to stay well hydrated drinking at least 2L of non caffeinated beverages daily. OTHER INSTRUCTIONS: Seek medical attention if you have: * temperature above 101 * chest pain or trouble breathing * abdominal pain, nausea, vomiting * diarrhea, dark stools or bloody stools * any unanswered questions or concerns Call 911 if symptoms are severe. Please take good care of yourself. It has been a pleasure taking care of you. Please take care of yourself. If you have any questions regarding your recent hospitalization please contact [facility] and request [facility] @ [phone]. Total Time Total Time Spent Total Time Spent (In Minutes): 45 minutes
[2024-03-01 10:15] LABS: Hep C Ab Rflx HepCQuant RNA Negative (Negative)
[2024-03-01 10:17] LABS: Hep B Surface Ag with confirm Negative (Negative)
[2024-03-01 11:02] LABS: Hepatitis A Antibody IgM NON-REACTIVE (NON-REACTIVE); Hepatitis B Core Antibody IgM NON-REACTIVE (NON-REACTIVE)
== END 2024-03-01 12:58 | disposition home or self-care (01) | DRG 372 ==
LOC: 3E 13:39 → ED 13:39 → SUATTDRO 19:05 → 3E 20:26 → SUATTDRO 02-27 09:56
DX: E66.9 Obesity, unspecified; Z87.19 Personal history of other diseases of the digestive system; Z79.899 Other long term (current) drug therapy; Z86.69 Personal history of other diseases of the nervous system and sense organs; K21.00 Gastro-esophageal reflux disease with esophagitis, without bleeding; Z68.37 Body mass index [BMI] 37.0-37.9, adult; Z88.5 Allergy status to narcotic agent; F41.1 Generalized anxiety disorder; F32.A Depression, unspecified; K56.7 Ileus, unspecified; M79.7 Fibromyalgia; Z87.891 Personal history of nicotine dependence; R94.31 Abnormal electrocardiogram [ECG] [EKG]; G47.419 Narcolepsy without cataplexy; A04.4 Other intestinal Escherichia coli infections; J32.0 Chronic maxillary sinusitis